=== PATIENT | female | born 1980 | race Caucasian/White ===

== ENCOUNTER 2019-03-05 16:06 | Outpatient (CLI) | payer MEDICAID ==
[~2019-03-05] VITALS: Ht 167.6 cm; Wt 72.7 kg
[2019-03-05 16:20] VITALS: Ht 167.6 cm; Wt 72.7 kg
[2019-03-05 16:22] VITALS: BP 112/74; PULSE 102; RESP 20
[2019-03-05] MEDS ORDERED: METF500T PO (16:28)
[2019-03-05] MEDS ORDERED: METH250T5 PO (16:29)
[2019-03-05] MEDS ORDERED: PREN1TAB13 PO (16:29)
[2019-03-05] MEDS ORDERED: FER325 PO (16:30)
[2019-03-05] MEDS ORDERED: CALC-143 PO (16:31)
--- NOTE | 2019-03-05 17:30 | PN ---
Triage Information Date/Time Reason for visit: HTN for NST BPP Weeks of Gestation 34+ /Para n/a Diabetes: gestational Diabetes management: oral agent Hypertention: essential, induced Objective Vital Signs Date Temp Pulse Resp B/P (MAP) Pulse Ox O2 O2 Flow FiO2 Time Delivery Rate 03/05/19 98.1 102 20 112/74 Room Air 16:22 (87) Heart Rate: 140's Results/Medications Result Diagram: 03/05/19 1635 03/05/19 1635 Results 24 hrs Laboratory Tests Test 03/05/19 16:35 White Blood Count 9.2 Red Blood Count 3.73 L Hemoglobin 7.6 L Hematocrit 25.5 L Mean Corpuscular Volume 68.4 L Mean Corpuscular Hemoglobin 20.4 L Mean Corpuscular Hemoglobin Concent 29.8 L Red Cell Distribution Width 17.5 H Platelet Count 319 Mean Platelet Volume 9.0 Immature Granulocytes % 0.500 H Neutrophils % 64.2 Lymphocytes % 26.4 Monocytes % 7.7 Eosinophils % 0.9 Basophils % 0.3 Nucleated Red Blood Cells % 0.0 Immature Granulocytes # 0.050 H Neutrophils # 5.9 Lymphocytes # 2.4 Monocytes # 0.7 Eosinophils # 0.1 Basophils # 0.0 Nucleated Red Blood Cells # 0.0 Prothrombin Time 12.0 Prothrombin Time Ratio 0.9 INR International Normalized Ratio 0.88 Activated Partial Thromboplast Time 25.3 Urine Color YELLOW Urine Clarity CLOUDY A Urine pH 6.0 Urine Specific [place] 1.018 Urine Ketones 1+ H Urine Nitrite NEGATIVE Urine Bilirubin NEGATIVE Urine Urobilinogen NEGATIVE Urine Leukocyte Esterase NEGATIVE Urine Microscopic RBC 1 Urine Microscopic WBC 21 H Urine Squamous Epithelial Cells MANY A Urine Bacteria FEW A Urine Hemoglobin NEGATIVE Urine Glucose NEGATIVE Urine Total Protein NEGATIVE Sodium Level 136 Potassium Level 4.1 Chloride Level 107 Carbon Dioxide Level 20 L Anion Gap 9 Blood Urea Nitrogen 15 Creatinine 0.53 Est Glomerular Filtrat Rate mL/min > 60 Glucose Level 92 Uric Acid 2.9 L Calcium Level 9.2 Total Bilirubin 0.3 Direct Bilirubin 0.00 Indirect Bilirubin 0.3 Aspartate Amino Transf (AST/SGOT) 20 Alanine Aminotransferase (ALT/SGPT) 17 Alkaline Phosphatase 105 Total Protein 7.2 Albumin 3.5 Globulin 3.70 H Albumin/Globulin Ratio 0.94 Disposition: Discharge Assessment/Plan BPP 08/01 CX closed Precautions discussed Questions answered Follow up with provider SVITLANA VELASQUEZ M.D. March 05, 2019 17:30
--- NOTE | 2019-03-05 19:22 | TRIAGE ---
OB Triage Datetime Report Generated by CPN: 03/05/2019 19:22 Datetime: 03/05/2019 17:18 Vaginal Exam Dilatation (cms): 0.0 Effacement (%): 40 Station: -3 Exam By: MAY Datetime: 03/05/2019 17:00 Labor Evaluation Frequency: X5 Monitor Mode: External Duration (sec)2399: 40-100 Quality: Mild Pattern: Normal: <= 5 Contractions in 10 Minutes Resting Tone [place]: Relaxed Heart Rate FHR Baseline Rate: 140 Monitor Mode: External US FHR Baseline Changes: No Baseline Change Variability: Moderate 6-25 bpm Accelerations: 15X15 Decelerations: None Category: Category I Pain Assessment Pain Scale: 0 Pain Presence: None/Denies Pain Type: N/A Pain Goal: 0 Datetime: 03/05/2019 16:12 EGA: 34.4 Datetime: 03/05/2019 16:06 Stage of : OB Triage Assessment Type: Triage Time of Arrival: 03/05/2019 15:54 Arrived By: Ambulatory Arrived From: Office Chief Complaint: NST/BPP/SHIRLEY FOR CHRONIC HTN AND DIABETES Movement: Present Contractions: Denies/Absent Rupture of Membranes: Denies Vaginal Bleeding: None Vaginal Discharge: Present Recent Sexual Intercouse: Denies Abdominal Trauma: Not Applicable Patient Complaints: None Time Provider Notified: 03/05/2019 17:17 Provider Notified: RON Initial Plan: NST/BPP/SHIRLEY/[facility] Maternal Assessment Level of Consciousness: Fully Conscious DTR's/Clonus: DTRs 2+; No Clonus Headache: Denies Blurred Vision: No Respiratory Effort: Unlabored; Regular Rhythm; Equal Expansion Breath Sounds, Left: Clear and Equal Breath Sounds, Right: Clear and Equal Nausea/Vomiting: Denies RUQ Epigastric Pain: Denies Lower Extremities Edema: None Degree: None Upper Extremities Edema: None Degree: None Facial Edema: None Temperature Route: Axillary Fall Risk Assessment History of Falling: (0) No Secondary Diagnosis: (0) No Ambulatory Aid: (0) Bedrest/Nurse Assist IV Therapy: (0) No Gait: (0) Normal/Bedrest/Immobile Mental Status: (0) Oriented to Own Ability Fall Score: 0 Fall Risk Score Definition: No Risk: No action required
== END 2019-03-05 17:30 | disposition home or self-care (01) ==
LOC: OBT 16:06 → L-D 16:08 → OBT 17:30
PROVIDERS: ATTEND Obstetrics & Gynecology
DX: O13.3 Gestational [pregnancy-induced] hypertension without significant proteinuria, third trimester (principal); O24.419 Gestational diabetes mellitus in pregnancy, unspecified control; O36.8330 Maternal care for abnormalities of the fetal heart rate or rhythm, third trimester, not applicable or unspecified; O09.513 Supervision of elderly primigravida, third trimester; Z3A.34 34 weeks gestation of pregnancy
CPT/HCPCS: 76815; 76818; 80053; 81001; 84560; 85025; 85610; 85730; Z7500; G0463

== ENCOUNTER 2019-03-07 09:50 | Inpatient (IN) | payer MEDICAID ==
[~2019-03-07] VITALS: Ht 170.2 cm; Wt 72.6 kg
[~2019-03-07 09:50] MED LIST: CALC-143 PO; FER325 PO; METF500T PO; METH250T5 PO; PREN1TAB13 PO
[2019-03-07 09:54] VITALS: Ht 170.2 cm; Wt 72.6 kg
[2019-03-07 09:55] VITALS: BP 107/68; PULSE 88; RESP 18
--- NOTE | 2019-03-07 14:08 | TRIAGE ---
OB Triage Datetime Report Generated by CPN: 03/07/2019 14:08 Datetime: 03/07/2019 13:59 Labor Evaluation Frequency: x7 Monitor Mode: External Duration (sec)2399: 40-90 Quality: Mild Resting Tone [place]: Relaxed Heart Rate FHR Baseline Rate: 140 Monitor Mode: External US FHR Baseline Changes: No Baseline Change Variability: Moderate 6-25 bpm Accelerations: 15X15 Decelerations: None Category: Category I Datetime: 03/07/2019 13:03 Stage of : Antepartum Datetime: 03/07/2019 13:00 Labor Evaluation Frequency: x2 Monitor Mode: External Duration (sec)2399: 70-90 Quality: Mild Resting Tone [place]: Relaxed Contraction Comments: irritability noted Heart Rate FHR Baseline Rate: 145 Monitor Mode: External US FHR Baseline Changes: No Baseline Change Variability: Moderate 6-25 bpm Accelerations: 15X15 Decelerations: Variable Category: Category II Vaginal Exam Dilatation (cms): 0.0 Effacement (%): 0 Exam By: Dr Ardalan Datetime: 03/07/2019 12:01 Labor Evaluation Frequency: x2 Monitor Mode: External Duration (sec)2399: 60-110 Quality: Mild Resting Tone [place]: Relaxed Contraction Comments: uterine irritability noted Heart Rate FHR Baseline Rate: 145 Monitor Mode: External US FHR Baseline Changes: No Baseline Change Variability: Moderate 6-25 bpm Accelerations: 15X15 Decelerations: None Category: Category I Datetime: 03/07/2019 11:29 Bedside Blood Glucose: 128 Datetime: 03/07/2019 10:59 Labor Evaluation Frequency: x2 Monitor Mode: External Duration (sec)2399: 70-100 Quality: Mild Resting Tone [place]: Relaxed Heart Rate FHR Baseline Rate: 145 Monitor Mode: External US FHR Baseline Changes: No Baseline Change Variability: Moderate 6-25 bpm Accelerations: 15X15 Decelerations: Variable Category: Category II Datetime: 03/07/2019 10:10 Stage of : OB Triage Maternal Assessment Level of Consciousness: Fully Conscious DTR's/Clonus: DTRs 2+; No Clonus Headache: Denies Blurred Vision: No Respiratory Effort: Unlabored; Regular Rhythm; Equal Expansion Breath Sounds, Left: Clear and Equal Breath Sounds, Right: Clear and Equal Nausea/Vomiting: Denies RUQ Epigastric Pain: Denies Lower Extremities Edema: None Degree: None Upper Extremities Edema: None Degree: None Facial Edema: None Temperature Route: Oral Fall Risk Assessment History of Falling: (0) No Secondary Diagnosis: (0) No Ambulatory Aid: (0) Bedrest/Nurse Assist IV Therapy: (0) No Gait: (0) Normal/Bedrest/Immobile Mental Status: (0) Oriented to Own Ability Fall Score: 0 Fall Risk Score Definition: No Risk: No action required Labor Evaluation Frequency: none Monitor Mode: External Contraction Comments: uterine irritability noted Heart Rate FHR Baseline Rate: 150 Monitor Mode: External US FHR Baseline Changes: No Baseline Change Variability: Moderate 6-25 bpm Accelerations: 15X15 Decelerations: None Category: Category I Pain Assessment Pain Scale: 0 Pain Presence: None/Denies Pain Type: N/A Datetime: 03/05/2019 17:20 Time of Arrival: 03/07/2019 09:36 EGA: 34.6 Arrived By: Ambulatory Arrived From: Home Chief Complaint: NST Movement: Present Contractions: Denies/Absent Rupture of Membranes: Denies Vaginal Bleeding: None Vaginal Discharge: Denies Recent Sexual Intercouse: Denies Abdominal Trauma: Not Applicable Patient Complaints: None Time Provider Notified: 03/07/2019 10:28 Provider Notified: Dr Benites Initial Plan: EFM, NST Datetime: 03/05/2019 16:12 EGA: 34.4 Datetime: 03/05/2019 16:06 Fall Score: 0 Fall Risk Score Definition: No Risk: No action required
[2019-03-07] MEDS ORDERED: GLUCOSE GEL 15 GRAM TUBE BUCCAL PRN (14:30)
[2019-03-07] MEDS ORDERED: GLUCOSE GEL 15 GRAM TUBE PO PRN ×2 (14:30)
[2019-03-07] MEDS ORDERED: DEXTROSE 50% 50 ML SYRINGE IV PRN ×2 (14:30)
[2019-03-07] MEDS ORDERED: GLUCAGON 1 MG INJ IM PRN (14:30)
[2019-03-07] MEDS: LACTATED RINGER'S 1,000 ML IV SCH (17:28)
--- NOTE | 2019-03-07 18:06 | PN ---
Triage Information Date/Time March 07, 2019 at 13:00 Reason for visit: testing Weeks of Gestation 34 weeks and 6 days /Para 6 para 2 Diabetes: none Hypertention: none Additional information 38-year-old G6, P2 with IUP at 34 weeks and 6 days with history of chronic hypertension and pre-gestational diabetes currently on medication here today for testing including NST/BPP. Patient had a history of x2. She had some contractions are currently resolved. Denies any leaking of fluid vaginal bleeding or decreased movement. Patient currently on Aldomet 20 mg every 8 hours as well as Metformin thousand milligrams every 8 hours and iron with vitamin. Hemoglobin A1c and her records reviewed 6.1. Patient denies any complaints. Objective Vital Signs Date Temp Pulse Resp B/P (MAP) Pulse Ox O2 O2 Flow FiO2 Time Delivery Rate 03/07/19 98.1 88 18 107/68 Room Air 09:55 (81) Heart Rate: 130's Heart Rate Comments NST: Category 1 Contractions: None Exam Appearance: Alert and oriented x4 does not appear to be in any acute distress Abdomen: Soft, gravid, fundal height consider gestational age NST: Category 1 BPP: 8/8 SHIRLEY: 14 x 6 Results/Medications Results 24 hrs Laboratory Tests Test 03/07/19 11:25 03/07/19 11:29 03/07/19 11:33 Urine Color LAURO Urine Clarity SLIGHTLY CLOUDY A Urine pH 6.0 Urine Specific [place] 1.023 Urine Ketones 1+ H Urine Nitrite NEGATIVE Urine Bilirubin NEGATIVE Urine Urobilinogen 2+ H Urine Leukocyte Esterase NEGATIVE Urine Microscopic RBC 15 H Urine Microscopic WBC 16 H Urine Squamous MODERATE Epithelial Cells Urine Bacteria FEW A Urine Mucus MODERATE Urine Hemoglobin NEGATIVE Urine Glucose NEGATIVE Urine Total Protein NEGATIVE Bedside Glucose 128 Hemoglobin A1c 6.1 H Medications Current Medications Lactated Ringer's 1,000 ml @ 125 mls/hr Q8H IV Last administered on 03/07/19at 17:28; Admin Dose 125 MLS/HR; Start 03/07/19 at 14:08 Prenat Multivit/ [place] [employer]/Iron/Folic Ac () 1 tab DAILY PO ; Start 03/08/19 at 09:00 Ferrous Sulfate (Ferrous Sulfate (Ec)) 325 mg BID PO ; Start 03/07/19 at 21:00 Metformin HCl (Glucophage) 1,000 mg TID PO ; Start 03/07/19 at 21:00 Methyldopa (Aldomet) 250 mg Q8 PO ; Start 03/07/19 at 22:00 Miscellaneous Information 1 ea NOTE XX ; Start 03/07/19 at 14:30 Glucose (Glutose) 15 gm Q15M PRN PO DECREASED GLUCOSE; Start 03/07/19 at 14:30 Glucose (Glutose) 22.5 gm Q15M PRN PO DECREASED GLUCOSE; Start 03/07/19 at 14:30 Dextrose (D50w Syringe) 25 ml Q15M PRN IV DECREASED GLUCOSE; Start 03/07/19 at 14:30 Dextrose (D50w Syringe) 50 ml Q15M PRN IV DECREASED GLUCOSE; Start 03/07/19 at 14:30 Glucagon (Glucagen) 1 mg Q15M PRN IM DECREASED GLUCOSE; Start 03/07/19 at 14:30 Glucose (Glutose) 15 gm Q15M PRN BUCCAL DECREASED GLUCOSE; Start 03/07/19 at 14:30 Imaging Results PROCEDURE: US OB biophysical profile. CLINICAL INDICATION: decreased movements, hypertension TECHNIQUE: Multiple sonographic images of the pelvis were obtained. The images were reviewed on a PACS workstation. COMPARISON: US PELVIS 03/05/2019 FINDINGS: There is a single live intrauterine gestation. Cardiac activity is present with 146 beats per minute. There is a vertex presentation. The placenta is anterior. There is no evidence of placental abruption. SHIRLEY = 14.6 cm. Biophysical profile: movement 2/2 tone 2/2. breathing 2/2 SHIRLEY 2/2 Total 88 RPTAT: AA . IMPRESSION: Normal biophysical profile. Disposition: Discharge Assessment/Plan IUP at 34 weeks and 6 days Chronic hypertension, well controlled with medication, asymptomatic no evidence of preeclampsia Diabetes, medication testing reassuring. No evidence of labor Recommended the patient to have a 24-hour urine protein collection Strict preeclampsia precaution was given as well as labor precautions kick counts and follow-up with NST tomorrow when the patient bring 24-hour urine for the baseline protein collection Patient verbalized understanding signs and symptoms of preeclampsia discussed as well as labor. All questions were answered to patient's best sa tisfaction. MARY GAMINO MD March 07, 2019 18:06
[2019-03-07] MEDS: FERROUS SULFATE (EC) 325 MG TAB PO SCH (20:55)
[2019-03-07] MEDS: metFORMIN 500 MG TAB PO SCH (20:59)
[2019-03-07] MEDS: METHYLDOPA 250 MG TAB PO SCH (22:28)
[2019-03-08] MEDS: LACTATED RINGER'S 1,000 ML IV SCH ×2 (00:10→06:08)
[2019-03-08] MEDS: METHYLDOPA 250 MG TAB PO SCH ×4 (06:00→22:15)
[2019-03-08] MEDS: PRENATAL VITAMIN PO SCH (08:48)
[2019-03-08] MEDS: FERROUS SULFATE (EC) 325 MG TAB PO SCH ×2 (08:48→20:47)
[2019-03-08] MEDS: metFORMIN 500 MG TAB PO SCH ×3 (08:49→20:48)
--- NOTE | 2019-03-08 11:45 | QN ---
Documentation Comment 38-year-old G6, P2 with IUP at 35 weeks of gestation, estimated date of delivery April 12, 2019 with history of chronic hypertension and pre-gestational diabetes currently on medication was seen yesterday for testing including NST/BPP. heart rate tracing yesterday was noted to have one deceleration therefore patient was admitted for continuous observation Patient reports positive movement, denies any vaginal bleeding or leaking fluid, reports occasional pelvic pressure heart rate tracing currently category 1 Vital signs stable VS - Last 72 Hours, by Label Date Temp Pulse Resp B/P (MAP) Pulse Ox O2 O2 Flow FiO2 Time Delivery Rate 03/07/19 98.1 88 18 107/68 Room Air 09:55 (81) Urine Results - 72 Hrs Test 03/07/19 11:25 Urine Color LAURO (YELLOW) Urine Clarity SLIGHTLY CLOUDY (CLEAR) Urine pH 6.0 (5.0-9.0) Urine Specific [place] 1.023 (1.003-1.030) Urine Ketones 1+ mg/dL (NEGATIVE) H Urine Nitrite NEGATIVE mg/dL (NEGATIVE) Urine Bilirubin NEGATIVE mg/dL (NEGATIVE) Urine Urobilinogen 2+ mg/dL (NEGATIVE) H Urine Leukocyte Esterase NEGATIVE Orestes/ul Urine Microscopic RBC 15 /HPF (0-5) H Urine Microscopic WBC 16 /HPF (0-5) H Urine Squamous Epithelial Cells MODERATE /HPF (FEW) Urine Bacteria FEW /HPF (NONE SEEN) A Urine Mucus MODERATE /HPF (NONE SEEN) Urine Hemoglobin NEGATIVE mg/dL (NEGATIVE) Urine Glucose NEGATIVE mg/dL (NEGATIVE) Urine Total Protein NEGATIVE mg/dl (NEGATIVE) Chemistry Test 03/07/19 11:29 03/07/19 11:33 03/07/19 17:32 03/07/19 20:27 Bedside 128 122 Glucose mg/dL (70-220) mg/dL (70-220) Hemoglobin A1c 6.1 % (0-5.9) H Sodium Level 135 mmol/L (135-14 4) Potassium 3.8 Level mmol/L (3.5-5. 1) Chloride Level 106 mmol/L (97-110 ) Carbon Dioxide 22 Level mmol/L (21-31) Anion Gap 7 (5-13) Blood Urea 10 Nitrogen mg/dl (7-20) Creatinine 0.35 mg/dl (0.44-1. 00) L Est Glomerular > 60 Filtrat mL/min (>60) Rate mL/min Glucose Level 94 mg/dl (70-220) Calcium Level 8.7 mg/dl (8.4-10. 2) Total 0.3 Bilirubin mg/dl (0.2-1.3 ) Direct 0.00 Bilirubin mg/dl (0.00-0. 20) Indirect 0.3 Bilirubin mg/dl (0-1.1) Aspartate Amino 19 Transf (AST/SGO IU/L (15-46) T) Alanine 16 Aminotransferas IU/L (13-69) e (ALT/SGPT) Alkaline 100 Phosphatase IU/L (42-121) Total Protein 6.8 g/dl (6.1-8.1) Albumin 3.3 g/dl (3.3-4.9) Globulin 3.50 g/dl (1.3-3.2) H Albumin/Globuli 0.94 n Ratio Test 03/08/19 08:08 03/08/19 11:22 Bedside 94 104 Glucose mg/dL (70-220) mg/dL (70-220) PROCEDURE: US OB biophysical profile. CLINICAL INDICATION: decreased movements, hypertension TECHNIQUE: Multiple sonographic images of the pelvis were obtained. The images were reviewed on a PACS workstation. COMPARISON: US PELVIS 03/05/2019 FINDINGS: There is a single live intrauterine gestation. Cardiac activity is present with 146 beats per minute. There is a vertex presentation. The placenta is anterior. There is no evidence of placental abruption. SHIRLEY = 14.6 cm. Biophysical profile: movement 2/2 tone 2/2. breathing 2/2 SHIRLEY 2/2 Total 05/30 RPTAT: AA . IMPRESSION: Normal biophysical profile. . .William Milan MD, Date Time Electronically viewed and signed by .William Milan MD, on 03/07/2019 12:04 .S/ CC: MARY GAMINO MD [id number] Abdomen gravid Extremities nontender Assessment and plan; Perinatology consultation pending 24-hour urine protein collection to be done CBC today Cervical length was ordered to be done today Continue with present management JOLENE BETANCUR MD March 08, 2019 11:45
--- NOTE | 2019-03-08 16:24 | PN ---
DATE: 03/08/2019 The patient was apparently admitted secondary to "late deceleration" that she had the day before [employer]. I reviewed the strip. The strip looks fine. The patient can be discharged home. Dictated By: LORA JORDAN MD ST/NTS Conf#: [id number] DID#: [id number] CC: RADHA NGUYEN MD;*EndCC*
--- NOTE | 2019-03-08 16:26 | PN ---
DATE: 03/08/2019 ADDENDUM: The patient upon discharge should have testing twice weekly until delivery. Dictated By: LORA JORDAN MD ST/ENRIQUE Conf#: [id number] DID#: [id number] CC: RADHA NGUYEN MD;*EndCC*
[2019-03-08] MEDS ORDERED: ACETAMINOPHEN 325 MG TAB PO PRN (17:00)
[2019-03-09] MEDS: METHYLDOPA 250 MG TAB PO SCH (05:57)
[2019-03-09] MEDS: FERROUS SULFATE (EC) 325 MG TAB PO SCH (08:46)
[2019-03-09] MEDS: PRENATAL VITAMIN PO SCH (08:46)
[2019-03-09] MEDS: metFORMIN 500 MG TAB PO SCH (08:47)
--- NOTE | 2019-03-09 11:38 | QN ---
Documentation Comment 38-year-old G6, P2 with IUP at 35 weeks and 1 day of gestation, estimated date of delivery April 12, 2019 with history of chronic hypertension and pre- gestational diabetes currently on medication was seen for testing including NST/BPP. heart rate tracing yesterday was noted to have one deceleration therefore patient was admitted for continuous observation Patient reports positive movement, denies any vaginal bleeding or leaking fluid, reports occasional pelvic pressure heart rate tracing currently category 1 Past obstetrical history significant for x2 Vital signs stable VS - Last 72 Hours, by Label Date Temp Pulse Resp B/P (MAP) Pulse Ox O2 O2 Flow FiO2 Time Delivery Rate 03/07/19 98.1 88 18 107/68 Room Air 09:55 (81) Urine Results - 72 Hrs Test 03/07/19 11:25 03/08/19 11:54 Urine Color LAURO (YELLOW) Urine Clarity SLIGHTLY CLOUDY (CLEAR) Urine pH 6.0 (5.0-9.0) Urine Specific [place] 1.023 (1.003-1.030) Urine Ketones 1+ mg/dL (NEGATIVE) H Urine Nitrite NEGATIVE mg/dL (NEGATIVE) Urine Bilirubin NEGATIVE mg/dL (NEGATIVE) Urine Urobilinogen 2+ mg/dL (NEGATIVE) H Urine Leukocyte Esterase NEGATIVE Orestes/ul Urine Microscopic RBC 15 /HPF (0-5) H Urine Microscopic WBC 16 /HPF (0-5) H Urine Squamous MODERATE /HPF (FEW) Epithelial Cells Urine Bacteria FEW /HPF (NONE SEEN) A Urine Mucus MODERATE /HPF (NONE SEEN) Urine Hemoglobin NEGATIVE mg/dL (NEGATIVE) Urine Glucose NEGATIVE mg/dL (NEGATIVE) Urine Total Protein NEGATIVE mg/dl (NEGATIVE) Urine Random Creatinine 28.93 mg/dl (20-320) Urine Collection Duration 24 hrs Urine Total Volume 24 3100 ml/24hrs Hours Urine Creatinine Timed 24 hrs Creatinine Clearance 177.9 mls/min (84.0-162.0) H Urine Total Volume 3100 mls (Protein) Urine Total Protein 24 465.0 Hour mg/24hrs (42.0-225.0) H Hematology - 72 Hrs Test 03/08/19 13:16 Hematocrit 25.2 % (37.0-47.0) L Hemoglobin 7.4 g/dl (12.0-16.0) L Mean Corpuscular Hemoglobin 20.2 pg (29.0-33.0) L Mean Corpuscular Hemoglobin Concent 29.4 g/dl (32.0-37.0) L Mean Corpuscular Volume 68.9 fl (82.0-101.0) L Mean Platelet Volume 9.0 fl (7.4-10.4) Platelet Count 322 10^3/UL (140-415) Red Blood Count 3.66 10^6/ul (4.20-5.40) L Red Cell Distribution Width 17.5 % (11.5-14.5) H White Blood Count 7.3 10^3/ul (4.8-10.8) # Chemistry Test 03/07/19 11:29 03/07/19 11:33 03/07/19 17:32 03/07/19 20:27 Bedside 128 122 Glucose mg/dL (70-220) mg/dL (70-220) Hemoglobin A1c 6.1 % (0-5.9) H Sodium Level 135 mmol/L (135-14 4) Potassium 3.8 Level mmol/L (3.5-5. 1) Chloride Level 106 mmol/L (97-110 ) Carbon Dioxide 22 Level mmol/L (21-31) Anion Gap 7 (5-13) Blood Urea 10 Nitrogen mg/dl (7-20) Creatinine 0.35 mg/dl (0.44-1. 00) L Est Glomerular > 60 Filtrat mL/min (>60) Rate mL/min Glucose Level 94 mg/dl (70-220) Calcium Level 8.7 mg/dl (8.4-10. 2) Total 0.3 Bilirubin mg/dl (0.2-1.3 ) Direct 0.00 Bilirubin mg/dl (0.00-0. 20) Indirect 0.3 Bilirubin mg/dl (0-1.1) Aspartate Amino 19 Transf (AST/SGO IU/L (15-46) T) Alanine 16 Aminotransferas IU/L (13-69) e (ALT/SGPT) Alkaline 100 Phosphatase IU/L (42-121) Total Protein 6.8 g/dl (6.1-8.1) Albumin 3.3 g/dl (3.3-4.9) Globulin 3.50 g/dl (1.3-3.2) H Albumin/Globuli 0.94 n Ratio Test 03/08/19 08:08 03/08/19 11:22 03/08/19 14:59 03/08/19 20:31 Bedside 94 104 95 104 Glucose mg/dL (70-220) mg/dL (70-220) mg/dL (70-220) mg/dL (70-220) Test 03/09/19 08:06 Bedside 89 Glucose mg/dL (70-220) PROCEDURE: Obstetric ultrasound CLINICAL INDICATION: Pain , gestational diabetes TECHNIQUE: Multiple transverse and longitudinal grayscale images of the pelvis were obtained transabdominally and transvaginally.. COMPARISON: US PELVIS 03/07/2019 FINDINGS: The cervix is closed with a length of 3.2 cm. There is a single live intrauterine gestation. Cardiac activity is present with 148 beats per minute. There is a vertex presentation. The placenta is anterior. There is no evidence for an abruption or placenta previa. RPTAT: AA IMPRESSION: Cervix length measures 3.2 cm. .William Milan MD, Date Time Electronically viewed and signed by .William Milan MD, on 03/08/2019 12:40 .S/ CC: JOLENE BETANCUR MD [id number] PROCEDURE: US OB biophysical profile. CLINICAL INDICATION: decreased movements, hypertension TECHNIQUE: Multiple sonographic images of the pelvis were obtained. The images were reviewed on a PACS workstation. COMPARISON: US PELVIS 03/05/2019 FINDINGS: There is a single live intrauterine gestation. Cardiac activity is present with 146 beats per minute. There is a vertex presentation. The placenta is anterior. There is no evidence of placental abruption. SHIRLEY = 14.6 cm. Biophysical profile: movement 2/2 tone 2/2. breathing 2/2 SHIRLEY 2/2 Total 05/30 RPTAT: AA . IMPRESSION: Normal biophysical profile. . .William Milan MD, Date Time Electronically viewed and signed by .William Milan MD, on 03/07/2019 12:04 .S/ CC: MAYR GAMINO MD [id number] Assessment and plan heart rate tracing remained category 1 24-hour urine protein collection [address] was discussed with Dr[address] Mock/perinatologist and okay to be discharged home with instruction for biweekly testing until delivery Patient was instructed to return for NST and BPP on Monday, March 11, 2019 JOLENE BETANCUR MD March 09, 2019 11:38
--- NOTE | 2019-03-09 11:46 | DS ---
Date/Time of Note Date/Time of Note DATE: 03/09/19 TIME: 11:46 Obstetrical Discharge Record Final Diagnosis Final Diagnosis: not delivered Other Final Diagnosis 38-year-old G6, P2 with IUP at 35 weeks and 1 day of gestation, estimated date of delivery April 12, 2019 with history of chronic hypertension and pre- gestational diabetes currently on medication was seen for testing including NST/BPP. heart rate tracing was noted to have one deceleration therefore patient was admitted for continuous observation Patient reports positive movement, denies any vaginal bleeding or leaking fluid, reports occasional pelvic pressure Cervix length measures 3.2 cm. Past obstetrical history significant for x2 heart rate tracing remained category 1 24-hour urine protein collection 465 Patient was discussed with Dr. Mock/perinatologist and mojgan to be discharged home with instruction for biweekly testing until delivery Patient was instructed to return for NST and BPP on Monday, March 11, 2019 Patient instructed to continue with her regular medications for hypertension and diabetes Complications Gestational Diabetes (Pre-gestational diabetes), Other (Chronic hypertension) Condition on Discharge Physical Assessment Voiding: Yes Bowel Movement: Yes Breast: Soft, non-tender Fundus: Other (Gravid) Calf Tenderness: No Patient Condition: Good Copies To: CC: RADHA NGUYEN BAHAREH MD March 09, 2019 11:46
== END 2019-03-09 12:48 | disposition home or self-care (01) | DRG 833 ==
LOC: OBT 09:50 → L-D 09:52 → OBT 13:00 → PP1 14:34
PROVIDERS: ADMIT Obstetrics & Gynecology; ATTEND Obstetrics & Gynecology
DX: O10.913 Unspecified pre-existing hypertension complicating pregnancy, third trimester (principal); O24.419 Gestational diabetes mellitus in pregnancy, unspecified control; Z3A.35 35 weeks gestation of pregnancy
CPT/HCPCS: 76817; 76818; 80053; 81001; 81003; 82575; 82962; 83036; 84156; 85025; 87086; G0463; J7120

== ENCOUNTER 2019-03-11 17:46 | Outpatient (CLI) | payer MEDICAID ==
[~2019-03-11] VITALS: Ht 167.6 cm; Wt 73.1 kg
[2019-03-11 18:10] VITALS: Ht 167.6 cm; Wt 73.1 kg
[2019-03-11] MEDS ORDERED: ACETAMINOPHEN 325 MG TAB PO ONE (19:00)
--- NOTE | 2019-03-12 12:08 | PN ---
Triage Information Date/Time Reason for visit: here for NST and BPP/ testing Weeks of Gestation patient is a 38-year-old 6 para 2 at 36 weeks of gestation with es timated date of delivery April 08, 2019 patient with pre-gestationa diabetes on Metformin and chronic HTN on Aldomet here for testing she reports positive movement, denies vaginal bleeding or leaking fluid, denies uterine contractions 24 hour urine protein collection 465 on March 08, 2019 Hx of C/section X 2 /Para Diabetes: pre-gestational Hypertention: essential Objective Heart Rate: 140's Heart Rate Comments heart rate tracing category 1 Contractions: None Results/Medications Imaging Results [place] [id number] Radiology Main Line: [phone] DIAGNOSTIC IMAGING REPORT Patient: AMRIT LOPEZ : 1980 Age: 38 Sex: F MR #: [id number] DOS: 03/11/19 1804 Ordering MD: RADHA NGUYEN MD Location: [facility] Room/Bed: PROCEDURE: US OB. CLINICAL INDICATION: Hypertension TECHNIQUE: Multiple sonographic images of the pelvis were obtained. The images were reviewed on a PACS workstation. COMPARISON: 03/07/2019 FINDINGS: There is a single live intrauterine . cardiac activity is identified at a rate of 148 beats per minute. presentation is cephalic. Placenta is anterior grade II. Biophysical profile score is as follows: Breathing 2 Movements 2 Tone 2 Fluid volume 2 Amniotic fluid index = 12.5 cm Total biophysical profile score = 8/8 IMPRESSION: Biophysical profile score = 8/8 RPTAT: HH .Rick Morris MD, Date Time Electronically viewed and signed by .Rick Morris MD, on 03/11/2019 18:56 .W/ CC: RADHA NGUYEN [phone] Disposition: Discharge Assessment/Plan kick count instructions were given Labor precautions were given patient instructed to return in 48 hours for repeat NST and BPP Patient instructed to follow up with her own [employer] in 1 to 2 days JOLENE BETANCUR MD March 12, 2019 12:08
== END 2019-03-11 19:43 | disposition home or self-care (01) ==
LOC: OBT 17:46 → L-D 17:49 → OBT 19:43
PROVIDERS: ATTEND Obstetrics & Gynecology
DX: O36.8330 Maternal care for abnormalities of the fetal heart rate or rhythm, third trimester, not applicable or unspecified (principal); O24.415 Gestational diabetes mellitus in pregnancy, controlled by oral hypoglycemic drugs; O34.219 Maternal care for unspecified type scar from previous cesarean delivery; O09.523 Supervision of elderly multigravida, third trimester; Z3A.36 36 weeks gestation of pregnancy
CPT/HCPCS: 76818; Z7500; Z7610; G0463

== ENCOUNTER 2019-03-13 08:38 | Outpatient (CLI) | payer MEDICAID ==
[~2019-03-13] VITALS: Ht 167.6 cm; Wt 72.8 kg
[2019-03-13 08:50] VITALS: BP 106/65; Ht 167.6 cm; Wt 72.8 kg
--- NOTE | 2019-03-31 17:15 | PN ---
Triage Information Date/Time Reason for visit: Antepartum testing Weeks of Gestation 33 weeks and 2 days /Para -0-3-2 Diabetes: none, pre-gestational Hypertention: essential Objective Heart Rate: 130's Contractions: None Disposition: Discharge Assessment/Plan 38-year-old -0-3-2 with single intrauterine at 33 weeks and 2 days presented for antepartum testing. She states good movement. She denies nausea, vomiting, shortness of breath, chest pain, headache, visual changes, vaginal bleeding or LOF. -FHR: No sign of metabolic acidosis- Category I -Contractions: None -Ultrasound performed: Normal SHIRLEY, BPP 8 out of 8 -Symptoms and sign of labor, preeclampsia, kick count discussed with patient, she voiced understanding. All of her questions answered. -Patient was discharged home in stable condition with the appropriate discharge instructions provided. I would like patient to have close follow-up with her primary physician or outpatient clinic in 1-2 days or return to triage for worsening symptoms or any other urgent concerns. RADHA NGUYEN Mar 31, 2019 17:15
== END 2019-03-13 11:00 | disposition home or self-care (01) ==
LOC: OBT 08:38 → L-D 08:39 → OBT 11:00
PROVIDERS: ATTEND Obstetrics & Gynecology
DX: O24.419 Gestational diabetes mellitus in pregnancy, unspecified control (principal); O16.3 Unspecified maternal hypertension, third trimester; Z3A.33 33 weeks gestation of pregnancy
CPT/HCPCS: 76818; Z7500; G0463

== ENCOUNTER 2019-03-14 16:49 | Outpatient (CLI) | payer MEDICAID ==
[~2019-03-14] VITALS: Ht 175.3 cm; Wt 72.7 kg
[2019-03-14 19:56] VITALS: BP 102/67; PULSE 93; RESP 18
[2019-03-14 20:42] VITALS: Ht 175.3 cm; Wt 72.7 kg
[2019-03-14] MEDS ORDERED: ACETAMINOPHEN 500 MG TAB PO STA (20:48)
[2019-03-14] MEDS ORDERED: CYANOCOBALAMIN 1000 MCG INJ IM ONE (21:00)
[2019-03-14] MEDS ORDERED: SOD FERRIC GLUC COMPLX 125 MG in SOD CHLORIDE 0.9% 100 ML IVPB ONE (21:00)
--- NOTE | 2019-03-14 23:27 | TRIAGE ---
OB Triage Datetime Report Generated by CPN: 03/14/2019 23:26 Datetime: 03/14/2019 21:07 Labor Evaluation Frequency: x2 Monitor Mode: External Duration (sec)2399: 60-120 Quality: Mild Pattern: Normal: <= 5 Contractions in 10 Minutes Resting Tone Nice: Relaxed Heart Rate FHR Baseline Rate: 145 Monitor Mode: External US Variability: Moderate 6-25 bpm Accelerations: 15X15 Decelerations: None Category: Category I Datetime: 03/14/2019 21:06 Pain Presence: Constant Pain Type: Ache Pain Location: Head Pain Relief Measures: Pain Medication Given Datetime: 03/14/2019 20:30 Labor Evaluation Frequency: x2 Monitor Mode: External Duration (sec)2399: 120 Quality: Mild Pattern: Normal: <= 5 Contractions in 10 Minutes Resting Tone Nice: Relaxed Heart Rate FHR Baseline Rate: 145 Monitor Mode: External US Variability: Moderate 6-25 bpm Accelerations: 15X15 Decelerations: None Category: Category I Datetime: 03/14/2019 19:56 Stage of : OB Triage Assessment Type: Triage Maternal Assessment Level of Consciousness: Fully Conscious DTR's/Clonus: DTRs 2+; No Clonus Headache: Denies Blurred Vision: No Respiratory Effort: Unlabored; Regular Rhythm; Equal Expansion Breath Sounds, Left: Clear and Equal Breath Sounds, Right: Clear and Equal Nausea/Vomiting: Denies RUQ Epigastric Pain: Denies Lower Extremities Edema: None Degree: None Upper Extremities Edema: None Facial Edema: None Temperature Route: Oral Fall Risk Assessment History of Falling: (0) No Secondary Diagnosis: (0) No Ambulatory Aid: (0) Bedrest/Nurse Assist IV Therapy: (0) No Gait: (0) Normal/Bedrest/Immobile Mental Status: (0) Oriented to Own Ability Fall Score: 0 Fall Risk Score Definition: No Risk: No action required Pain Assessment Pain Scale: 6 Pain Presence: Constant Pain Type: Ache Pain Location: Head Datetime: 03/14/2019 19:50 Time of Arrival: 03/14/2019 16:47 EGA: 36.3 Arrived By: Ambulatory Arrived From: Home Chief Complaint: Clinic called pt to come to hospital for iron infusion Movement: Present Contractions: Denies/Absent Rupture of Membranes: Denies Vaginal Bleeding: None Vaginal Discharge: Denies Recent Sexual Intercouse: Denies Abdominal Trauma: Not Applicable Patient Complaints: None Additional Patient Complaints: None Time Provider Notified: 03/14/2019 20:32 Provider Notified: Dr. Nguyen Initial Plan: CEFM Datetime: 03/13/2019 10:04 Stage of : OB Triage Labor Evaluation Frequency: X1 Monitor Mode: External Duration (sec)2399: 80 Pattern: Normal: <= 5 Contractions in 10 Minutes Resting Tone Nice: Relaxed Heart Rate FHR Baseline Rate: 145 Monitor Mode: External US Variability: Moderate 6-25 bpm Accelerations: 15X15 Decelerations: None Category: Category I Pain Presence: None/Denies Pain Type: N/A Datetime: 03/13/2019 08:48 Stage of : OB Triage Assessment Type: Triage Maternal Assessment Level of Consciousness: Fully Conscious DTR's/Clonus: DTRs 2+; No Clonus Headache: Denies Blurred Vision: No Respiratory Effort: Unlabored; Regular Rhythm; Equal Expansion Breath Sounds, Left: Clear and Equal Breath Sounds, Right: Clear and Equal Nausea/Vomiting: Denies RUQ Epigastric Pain: Denies Lower Extremities Edema: None Degree: None Upper Extremities Edema: None Facial Edema: None Temperature Route: Oral Fall Risk Assessment History of Falling: (0) No Secondary Diagnosis: (0) No Ambulatory Aid: (0) Bedrest/Nurse Assist IV Therapy: (0) No Gait: (0) Normal/Bedrest/Immobile Mental Status: (0) Oriented to Own Ability Fall Score: 0 Fall Risk Score Definition: No Risk: No action required Monitor Mode: External Monitor Mode: External US (Annotations: INITIAL PLACEMENT ) Pain Assessment Pain Scale: 0 Pain Presence: None/Denies Pain Type: N/A Datetime: 03/11/2019 19:00 Stage of : OB Triage Labor Evaluation Frequency: NONE Monitor Mode: External Heart Rate FHR Baseline Rate: 145 Monitor Mode: External US Variability: Moderate 6-25 bpm Accelerations: 15X15 Decelerations: None Category: Category I Pain Assessment Pain Scale: 7 Pain Presence: Intermittent Pain Type: Ache Pain Location: Head Pain Goal: 3 Datetime: 03/11/2019 18:33 Stage of : OB Triage Labor Evaluation Frequency: 1 Monitor Mode: External Duration (sec)2399: 90 Quality: Mild Pattern: Normal: <= 5 Contractions in 10 Minutes Heart Rate FHR Baseline Rate: 145 Monitor Mode: External US Variability: Moderate 6-25 bpm Accelerations: 15X15 Decelerations: None Category: Category I Pain Assessment Pain Scale: 7 Pain Presence: Intermittent Pain Type: Ache Pain Location: Head Pain Goal: 3 Datetime: 03/11/2019 18:01 Time of Arrival: 03/13/2019 08:32 EGA: 36.2 Arrived By: Ambulatory Arrived From: Home Chief Complaint: NST, BPP FOR GDM CHT Movement: Present Contractions: Denies/Absent Rupture of Membranes: Denies Vaginal Bleeding: None Vaginal Discharge: Denies Recent Sexual Intercouse: Denies Abdominal Trauma: Not Applicable Patient Complaints: None Time Provider Notified: 03/13/2019 10:30 Provider Notified: DR. NGUYEN Initial Plan: NST. BPP Datetime: 03/11/2019 17:50 Assessment Type: Triage Maternal Assessment Level of Consciousness: Fully Conscious DTR's/Clonus: DTRs 2+; No Clonus Headache: Denies Blurred Vision: No Respiratory Effort: Unlabored; Regular Rhythm; Equal Expansion Breath Sounds, Left: Clear and Equal Breath Sounds, Right: Clear and Equal Nausea/Vomiting: Denies RUQ Epigastric Pain: Denies Lower Extremities Edema: None Degree: None Upper Extremities Edema: None Degree: None Facial Edema: None Fall Risk Assessment History of Falling: (0) No Secondary Diagnosis: (0) No Ambulatory Aid: (0) Bedrest/Nurse Assist IV Therapy: (0) No Gait: (0) Normal/Bedrest/Immobile Mental Status: (0) Oriented to Own Ability Fall Score: 0 Fall Risk Score Definition: No Risk: No action required Datetime: 03/11/2019 17:35 Time of Arrival: 03/11/2019 17:35 EGA: 35.3 Arrived By: Ambulatory Arrived From: Home Chief Complaint: PT CAME IN FROM HOME FOR NST AND BPP F/U FOR GDM AND HIGH BLOOD PRESSURES. PT C/O VAGINAL DISCHARGE AND HEADACHE AT THIS TIME. DENIES ANY OTHER S/S OF PIH Movement: Present Contractions: Denies/Absent Rupture of Membranes: Denies Vaginal Discharge: Denies Recent Sexual Intercouse: Denies Abdominal Trauma: Not Applicable Additional Patient Complaints: NONE Time Provider Notified: 03/11/2019 18:00 Provider Notified: GYPSY Initial Plan: NST, BPP, TYLENOL Datetime: 03/09/2019 10:16 Comments: All d/c instractions given to pt. All questions were answered. Pt verbalized understandin g. Datetime: 03/09/2019 08:44 Stage of : Antepartum Temperature Route: Oral Contraction Comments: Hep lock removed, tip intact. Pt tolerated procedure Pain Assessment Pain Scale: 0 Pain Presence: None/Denies Pain Type: N/A Pain Goal: 3 Datetime: 03/09/2019 08:38 Maternal Assessment Level of Consciousness: Fully Conscious Headache: Denies Blurred Vision: No Nausea/Vomiting: Denies RUQ Epigastric Pain: Denies Facial Edema: None Labor Evaluation Frequency: x2 Monitor Mode: External Duration (sec)2399: 40-110 Quality: Mild Pattern: Normal: <= 5 Contractions in 10 Minutes Resting Tone Nice: Relaxed Heart Rate FHR Baseline Rate: 145 Monitor Mode: External US FHR Baseline Changes: No Baseline Change Variability: Moderate 6-25 bpm Accelerations: 15X15 Decelerations: None Category: Category I Pain Assessment Pain Scale: 0 Pain Presence: None/Denies Pain Type: N/A Pain Goal: 3 Vaginal Exam Membrane Status: Intact Datetime: 03/09/2019 08:36 Comments: Dr. Ugarte at bedside to review strip and lab work done on 24 hr urine collection, CMP a nd CBC. New order to send pt home and have her return to triage on Monday for BPP and NST. Have triag e schedule NST/BPP biweekly Datetime: 03/09/2019 08:01 Labor Evaluation Frequency: x4 Monitor Mode: External Duration (sec)2399: 40-80 Quality: Mild Pattern: Normal: <= 5 Contractions in 10 Minutes Resting Tone Nice: Relaxed Heart Rate FHR Baseline Rate: 135 Monitor Mode: External US FHR Baseline Changes: No Baseline Change Variability: Moderate 6-25 bpm Accelerations: 15X15 Decelerations: None Category: Category I Pain Assessment Pain Scale: 0 Pain Presence: None/Denies Pain Type: N/A Pain Goal: 3 Vaginal Exam Membrane Status: Intact Datetime: 03/09/2019 07:18 Stage of : Antepartum Datetime: 03/09/2019 07:00 Labor Evaluation Frequency: X1 Monitor Mode: External Duration (sec)2399: 180 Quality: Mild Resting Tone Nice: Relaxed Heart Rate FHR Baseline Rate: 130 Monitor Mode: External US Variability: Moderate 6-25 bpm Accelerations: 15X15 Decelerations: None Category: Category I Pain Presence: None/Denies Pain Type: N/A Datetime: 03/09/2019 06:10 Stage of : Antepartum Datetime: 03/09/2019 06:00 Stage of : Antepartum Labor Evaluation Frequency: X1 Monitor Mode: External Duration (sec)2399: 150 Quality: Mild Resting Tone Nice: Relaxed Contraction Comments: WITH UTERINE IRRITABILITY Heart Rate FHR Baseline Rate: 130 Monitor Mode: External US Variability: Moderate 6-25 bpm Accelerations: 15X15 Decelerations: None Category: Category I Datetime: 03/09/2019 05:56 Stage of : Antepartum Temperature Route: Oral Datetime: 03/09/2019 05:54 Monitor Mode: External US Datetime: 03/09/2019 05:00 Labor Evaluation Frequency: NONE Monitor Mode: External Quality: Mild Resting Tone Nice: Relaxed Heart Rate FHR Baseline Rate: 130 Monitor Mode: External US Variability: Moderate 6-25 bpm Accelerations: 15X15 Decelerations: None Category: Category I Pain Presence: None/Denies Pain Type: N/A Datetime: 03/09/2019 04:00 Labor Evaluation Frequency: NONE Monitor Mode: External Resting Tone Nice: Relaxed Heart Rate FHR Baseline Rate: 140 Monitor Mode: External US Variability: Moderate 6-25 bpm Accelerations: 15X15 Decelerations: None Category: Category I Pain Presence: None/Denies Pain Type: N/A Pain Assessment Comments: PT SLEEPING BUT EASILY AROUSED Datetime: 03/09/2019 03:00 Labor Evaluation Frequency: X1 Monitor Mode: External Duration (sec)2399: 110 Quality: Mild Resting Tone Nice: Relaxed Heart Rate FHR Baseline Rate: 130 Variability: Moderate 6-25 bpm Accelerations: 15X15 Decelerations: None Category: Category I Pain Presence: None/Denies Pain Type: N/A Datetime: 03/09/2019 02:02 Monitor Mode: External US Datetime: 03/09/2019 02:00 Labor Evaluation Frequency: NONE Monitor Mode: External Resting Tone Nice: Relaxed Heart Rate FHR Baseline Rate: 130 Monitor Mode: External US Variability: Moderate 6-25 bpm Accelerations: 15X15 Decelerations: None Category: Category I Pain Presence: None/Denies Pain Type: N/A Datetime: 03/09/2019 01:00 Labor Evaluation Frequency: X1 Monitor Mode: External Duration (sec)2399: 100 Quality: Mild Resting Tone Nice: Relaxed Heart Rate FHR Baseline Rate: 140 Monitor Mode: External US Variability: Moderate 6-25 bpm Accelerations: 15X15 Decelerations: None Category: Category I Pain Presence: None/Denies Pain Type: N/A Datetime: 03/09/2019 00:26 Monitor Mode: External US Datetime: 03/09/2019 00:00 Labor Evaluation Frequency: NONE Monitor Mode: External Resting Tone Nice: Relaxed Heart Rate FHR Baseline Rate: 150 Monitor Mode: Internal Scalp Electrode Variability: Moderate 6-25 bpm Accelerations: 15X15 Decelerations: None Category: Category I Pain Presence: None/Denies Pain Type: N/A Datetime: 03/08/2019 23:54 Monitor Mode: External US Datetime: 03/08/2019 23:00 Labor Evaluation Frequency: X1 Monitor Mode: External Duration (sec)2399: 80 Resting Tone Nice: Relaxed Heart Rate FHR Baseline Rate: 140 Monitor Mode: External US Variability: Moderate 6-25 bpm Accelerations: 15X15 Decelerations: None Category: Category I Pain Presence: None/Denies Pain Type: N/A Datetime: 03/08/2019 22:48 Monitor Mode: External US Datetime: 03/08/2019 22:21 Stage of : Antepartum Monitor Mode: External US Datetime: 03/08/2019 22:15 Stage of : Antepartum Datetime: 03/08/2019 22:00 Labor Evaluation Frequency: X1 Monitor Mode: External Duration (sec)2399: 90 Quality: Mild Resting Tone Nice: Relaxed Heart Rate FHR Baseline Rate: 140 Monitor Mode: External US Variability: Moderate 6-25 bpm Accelerations: 15X15 Decelerations: None Category: Category I Pain Presence: None/Denies Pain Type: N/A Datetime: 03/08/2019 21:48 Stage of : Antepartum Datetime: 03/08/2019 21:32 Monitor Mode: External US Datetime: 03/08/2019 21:00 Labor Evaluation Frequency: X1 Monitor Mode: External Duration (sec)2399: 90 Quality: Mild Resting Tone Nice: Relaxed Heart Rate FHR Baseline Rate: 140 Monitor Mode: External US Variability: Moderate 6-25 bpm Accelerations: None Decelerations: None Category: Category I Pain Presence: None/Denies Pain Type: N/A Datetime: 03/08/2019 20:31 Stage of : Antepartum Bedside Blood Glucose: 104 Datetime: 03/08/2019 20:00 Labor Evaluation Frequency: X2 Monitor Mode: External Duration (sec)2399: 80-120 Quality: Mild Resting Tone Nice: Relaxed Heart Rate FHR Baseline Rate: 140 Monitor Mode: External US Variability: Moderate 6-25 bpm Accelerations: 15X15 Decelerations: None Category: Category I Pain Presence: None/Denies Pain Type: N/A Datetime: 03/08/2019 19:21 Stage of : Antepartum Assessment Type: Ongoing Assessment Maternal Assessment Level of Consciousness: Fully Conscious DTR's/Clonus: DTRs 2+; No Clonus Headache: Denies Blurred Vision: No Respiratory Effort: Unlabored; Regular Rhythm; Equal Expansion Breath Sounds, Left: Clear and Equal Breath Sounds, Right: Clear and Equal Nausea/Vomiting: Denies RUQ Epigastric Pain: Denies Lower Extremities Edema: None Degree: None Upper Extremities Edema: None Degree: None Facial Edema: None Temperature Route: Oral Fall Risk Assessment History of Falling: (0) No Secondary Diagnosis: (0) No Ambulatory Aid: (0) Bedrest/Nurse Assist IV Therapy: (0) No Gait: (0) Normal/Bedrest/Immobile Mental Status: (0) Oriented to Own Ability Fall Score: 0 Fall Risk Score Definition: No Risk: No action required Monitor Mode: External Contraction Comments: PT DENIES CRAMPING Monitor Mode: External US Comments: PT STATES + FM Pain Presence: None/Denies Pain Type: N/A Vaginal Exam Membrane Status: Intact Vaginal Bleeding: None Datetime: 03/08/2019 18:26 Pain Presence: None/Denies Datetime: 03/08/2019 18:00 Stage of : Antepartum Maternal Assessment Level of Consciousness: Fully Conscious Headache: Denies Nausea/Vomiting: Denies RUQ Epigastric Pain: Denies Labor Evaluation Frequency: 0/hr Monitor Mode: External Heart Rate FHR Baseline Rate: 135 Monitor Mode: External US Variability: Moderate 6-25 bpm Accelerations: 15X15 Decelerations: None Pain Assessment Pain Scale: 1 Pain Presence: Constant Pain Type: Dull Pain Location: Head Pain Relief Measures: Pain Medication Given; Comfort Measures Pain Assessment Comments: tylenol effective per pt. Vaginal Exam Membrane Status: Intact Vaginal Bleeding: None Datetime: 03/08/2019 17:39 Pain Assessment Pain Scale: 1 Pain Presence: Constant Pain Type: Dull Pain Location: Head Pain Relief Measures: Comfort Measures Datetime: 03/08/2019 17:00 Labor Evaluation Frequency: 0/hr Monitor Mode: External Heart Rate FHR Baseline Rate: 135 Monitor Mode: External US Variability: Moderate 6-25 bpm Accelerations: 15X15 Decelerations: None Datetime: 03/08/2019 16:47 Stage of : Antepartum Maternal Assessment Level of Consciousness: Fully Conscious Headache: Denies Nausea/Vomiting: Denies RUQ Epigastric Pain: Denies Temperature Route: Oral Resting Tone Nice: Relaxed Pain Assessment Pain Scale: 3 Pain Presence: Constant Pain Type: Dull Pain Location: Head Pain Relief Measures: Comfort Measures Vaginal Exam Membrane Status: Intact Vaginal Bleeding: None Datetime: 03/08/2019 16:07 Maternal Assessment Level of Consciousness: Fully Conscious Headache: Denies Blurred Vision: No Respiratory Effort: Unlabored Nausea/Vomiting: Denies RUQ Epigastric Pain: Denies Labor Evaluation Frequency: 0/hr Monitor Mode: External Heart Rate FHR Baseline Rate: 150 Monitor Mode: External US Variability: Moderate 6-25 bpm Accelerations: 15X15 Decelerations: None Pain Presence: None/Denies Datetime: 03/08/2019 16:00 Stage of : Antepartum Datetime: 03/08/2019 14:51 Maternal Assessment Level of Consciousness: Fully Conscious Headache: Denies Blurred Vision: No Respiratory Effort: Unlabored Nausea/Vomiting: Denies RUQ Epigastric Pain: Denies Bedside Blood Glucose: 94 Pain Presence: None/Denies Datetime: 03/08/2019 14:22 Stage of : Antepartum Labor Evaluation Frequency: occassional Monitor Mode: External Duration (sec)2399: 50 Quality: Mild Heart Rate FHR Baseline Rate: 145 Monitor Mode: External US Variability: Moderate 6-25 bpm Accelerations: 15X15 Decelerations: None Datetime: 03/08/2019 13:09 Stage of : Antepartum Labor Evaluation Frequency: 0/hr Monitor Mode: External Heart Rate FHR Baseline Rate: 135 Monitor Mode: External US Variability: Moderate 6-25 bpm Accelerations: 15X15 Decelerations: None Datetime: 03/08/2019 11:30 Pain Presence: None/Denies Datetime: 03/08/2019 11:23 Stage of : Antepartum Temperature Route: Oral Datetime: 03/08/2019 10:00 Stage of : Antepartum Labor Evaluation Frequency: irregular Monitor Mode: External Quality: Mild Heart Rate FHR Baseline Rate: 145 Monitor Mode: External US Variability: Moderate 6-25 bpm Accelerations: 15X15 Decelerations: None Datetime: 03/08/2019 09:49 Maternal Assessment Level of Consciousness: Fully Conscious Headache: Denies Blurred Vision: No Respiratory Effort: Unlabored Nausea/Vomiting: Denies RUQ Epigastric Pain: Denies Heart Rate FHR Baseline Rate: 140 Monitor Mode: External US Variability: Moderate 6-25 bpm Accelerations: 15X15 Decelerations: None Datetime: 03/08/2019 09:06 Labor Evaluation Frequency: irregular Monitor Mode: External Quality: Mild Heart Rate FHR Baseline Rate: 145 Monitor Mode: External US Variability: Moderate 6-25 bpm Accelerations: 15X15 Decelerations: None Datetime: 03/08/2019 08:15 Stage of : Antepartum Assessment Type: Ongoing Assessment Maternal Assessment Level of Consciousness: Fully Conscious Maternal Assessment Level of Consciousness: Fully Conscious DTR's/Clonus: DTRs 2+; No Clonus Headache: Denies Headache: Denies Blurred Vision: No Respiratory Effort: Unlabored; Regular Rhythm; Equal Expansion Breath Sounds, Left: Clear and Equal Breath Sounds, Right: Clear and Equal Nausea/Vomiting: Denies Nausea/Vomiting: Denies RUQ Epigastric Pain: Denies RUQ Epigastric Pain: Denies Lower Extremities Edema: None Upper Extremities Edema: None Facial Edema: None Temperature Route: Oral Bedside Blood Glucose: 94 Fall Risk Assessment History of Falling: (0) No Secondary Diagnosis: (0) No Ambulatory Aid: (0) Bedrest/Nurse Assist IV Therapy: (20) Yes Gait: (0) Normal/Bedrest/Immobile Mental Status: (0) Oriented to Own Ability Fall Score: 20 Fall Risk Score Definition: No Risk: No action required Labor Evaluation Frequency: occassional Monitor Mode: External Duration (sec)2399: 60 Quality: Mild Resting Tone Nice: Relaxed Heart Rate FHR Baseline Rate: 140 Monitor Mode: External US Variability: Moderate 6-25 bpm Accelerations: 15X15 Decelerations: None Pain Assessment Pain Scale: 0 Pain Presence: None/Denies Vaginal Exam Membrane Status: Intact (Annotations: pt. denies lof or sromat this time) Vaginal Bleeding: None (Annotations: pt. denies) Datetime: 03/08/2019 07:20 Stage of : Antepartum Stage of : Antepartum Pain Presence: None/Denies Datetime: 03/08/2019 07:05 Stage of : Antepartum Datetime: 03/08/2019 07:00 Labor Evaluation Frequency: X2 Monitor Mode: External Duration (sec)2399: 60-80 Quality: Mild Resting Tone Nice: Relaxed Heart Rate FHR Baseline Rate: 130 Monitor Mode: External US Variability: Moderate 6-25 bpm Accelerations: 15X15 Decelerations: None Category: Category I Pain Presence: None/Denies Pain Type: N/A Datetime: 03/08/2019 06:50 Stage of : Antepartum Datetime: 03/08/2019 06:08 Stage of : Antepartum Temperature Route: Oral Datetime: 03/08/2019 06:00 Labor Evaluation Frequency: X2 Monitor Mode: External Duration (sec)2399: 80-90 Quality: Mild Resting Tone Nice: Relaxed Heart Rate FHR Baseline Rate: 130 Monitor Mode: External US Variability: Moderate 6-25 bpm Accelerations: 15X15 Decelerations: None Category: Category I Pain Presence: None/Denies Pain Type: N/A Datetime: 03/08/2019 05:00 Labor Evaluation Frequency: X2 Monitor Mode: External Duration (sec)2399: 90-110 Quality: Mild Resting Tone Nice: Relaxed Heart Rate FHR Baseline Rate: 130 Monitor Mode: External US Variability: Moderate 6-25 bpm Accelerations: 15X15 Decelerations: None Category: Category I Pain Presence: None/Denies Pain Type: N/A Datetime: 03/08/2019 04:00 Labor Evaluation Frequency: X6 Monitor Mode: External Duration (sec)2399: 60-120 Quality: Mild Resting Tone Nice: Relaxed Heart Rate FHR Baseline Rate: 135 Monitor Mode: External US Variability: Moderate 6-25 bpm Accelerations: 15X15 Decelerations: None Category: Category I Pain Presence: None/Denies Pain Type: N/A Pain Assessment Comments: PT SLEEPINGWITH EVEN UNLABORED BREATHING Datetime: 03/08/2019 03:00 Labor Evaluation Frequency: X4 Monitor Mode: External Duration (sec)2399: 60-120 Quality: Mild Resting Tone Nice: Relaxed Heart Rate FHR Baseline Rate: 130 Monitor Mode: Internal Scalp Electrode Variability: Moderate 6-25 bpm Accelerations: 15X15 Decelerations: None Category: Category I Pain Presence: None/Denies Pain Type: N/A Datetime: 03/08/2019 02:30 Monitor Mode: External US Datetime: 03/08/2019 02:00 Labor Evaluation Frequency: NONE Monitor Mode: External Resting Tone Nice: Relaxed Heart Rate FHR Baseline Rate: 130 Monitor Mode: External US Variability: Moderate 6-25 bpm Accelerations: 15X15 Decelerations: None Category: Category I Pain Presence: None/Denies Pain Type: N/A Datetime: 03/08/2019 01:47 Monitor Mode: External US Datetime: 03/08/2019 01:00 Labor Evaluation Frequency: NONE Monitor Mode: External Resting Tone Nice: Relaxed Heart Rate FHR Baseline Rate: 130 Monitor Mode: External US Variability: Moderate 6-25 bpm Accelerations: 15X15 Decelerations: None Category: Category I Pain Presence: None/Denies Pain Type: N/A Datetime: 03/08/2019 00:00 Labor Evaluation Frequency: NONE Monitor Mode: External Resting Tone Nice: Relaxed Heart Rate FHR Baseline Rate: 135 Monitor Mode: External US Variability: Moderate 6-25 bpm Accelerations: 15X15 Decelerations: None Category: Category I Pain Presence: None/Denies Pain Type: N/A Datetime: 03/07/2019 23:00 Labor Evaluation Frequency: X1 Monitor Mode: External Duration (sec)2399: 90 Quality: Mild Resting Tone Nice: Relaxed Heart Rate FHR Baseline Rate: 145 Monitor Mode: External US Variability: Moderate 6-25 bpm Accelerations: 15X15 Decelerations: None Category: Category I Pain Presence: None/Denies Pain Type: N/A Datetime: 03/07/2019 22:28 Stage of : Antepartum Datetime: 03/07/2019 22:00 Labor Evaluation Frequency: NONE Monitor Mode: External Resting Tone Nice: Relaxed Heart Rate FHR Baseline Rate: 140 Monitor Mode: External US Variability: Moderate 6-25 bpm Accelerations: 15X15 Decelerations: None Category: Category I Pain Presence: None/Denies Pain Type: N/A Datetime: 03/07/2019 21:00 Labor Evaluation Frequency: NONE Monitor Mode: External Resting Tone Nice: Relaxed Heart Rate FHR Baseline Rate: 140 Monitor Mode: External US Variability: Moderate 6-25 bpm Accelerations: 15X15 Decelerations: None Category: Category I Pain Presence: None/Denies Pain Type: N/A Datetime: 03/07/2019 20:00 Labor Evaluation Frequency: NONE Monitor Mode: External Resting Tone Nice: Relaxed Heart Rate FHR Baseline Rate: 135 Monitor Mode: External US Variability: Moderate 6-25 bpm Accelerations: 15X15 Decelerations: None Category: Category I Pain Presence: None/Denies Pain Type: N/A Datetime: 03/07/2019 18:50 Labor Evaluation Frequency: 0 Monitor Mode: External Resting Tone Nice: Relaxed Heart Rate FHR Baseline Rate: 140 Monitor Mode: External US FHR Baseline Changes: No Baseline Change Variability: Moderate 6-25 bpm Accelerations: 15X15 Decelerations: None Category: Category I Datetime: 03/07/2019 17:10 Labor Evaluation Frequency: occasional and irritability Monitor Mode: External Quality: Mild Resting Tone Nice: Relaxed Heart Rate FHR Baseline Rate: 140 Monitor Mode: External US FHR Baseline Changes: No Baseline Change Variability: Moderate 6-25 bpm Accelerations: 15X15 Decelerations: None Category: Category I Datetime: 03/07/2019 16:18 Assessment Type: Admission Assessment Vaginal Bleeding: None Maternal Assessment Level of Consciousness: Fully Conscious DTR's/Clonus: DTRs 2+; No Clonus Headache: Denies Blurred Vision: No Respiratory Effort: Unlabored; Regular Rhythm; Equal Expansion Breath Sounds, Left: Clear and Equal Breath Sounds, Right: Clear and Equal Nausea/Vomiting: Denies RUQ Epigastric Pain: Denies Facial Edema: None Fall Risk Assessment History of Falling: (0) No Secondary Diagnosis: (0) No Ambulatory Aid: (0) Bedrest/Nurse Assist IV Therapy: (0) No Gait: (0) Normal/Bedrest/Immobile Mental Status: (0) Oriented to Own Ability Fall Score: 0 Fall Risk Score Definition: No Risk: No action required Datetime: 03/07/2019 15:59 Labor Evaluation Frequency: irritability Monitor Mode: External Quality: Mild Resting Tone [place]: Relaxed Contraction Comments: pt denies feeling contractions Heart Rate FHR Baseline Rate: 130 Monitor Mode: External US FHR Baseline Changes: No Baseline Change Variability: Moderate 6-25 bpm Accelerations: 15X15 Decelerations: None Category: Category I Datetime: 03/07/2019 10:10 Fall Score: 0 Fall Risk Score Definition: No Risk: No action required Datetime: 03/05/2019 17:20 Time of Arrival: 03/07/2019 14:50 EGA: 34.6 Arrived By: Wheelchair Datetime: 03/05/2019 16:12 EGA: 34.4 Datetime: 03/05/2019 16:06 Fall Score: 0 Fall Risk Score Definition: No Risk: No action required
--- NOTE | 2019-03-14 23:34 | PN ---
Triage Information Date/Time 03/14/19 Reason for visit: IV Iron infusion Weeks of Gestation 36w2d /Para A3 Diabetes: gestational Diabetes management: oral agent Hypertention: induced Additional information on metformin 500mg TID aldomet 250 q8hrs Objective Vital Signs Date Temp Pulse Resp B/P (MAP) Pulse Ox O2 O2 Flow FiO2 Time Delivery Rate 03/14/19 98.2 93 18 102/67 Room Air 19:56 (79) Heart Rate: 140's Contractions: None Results/Medications Medications Ferrlicet 125mg IVPB VB12 1000mcg IM tylenol 1000g po Imaging Results A IUP 36w2d severe anemia GDM GHTN P RTH on 03/16/19 for IV IRON with NST SHIRLEY once/week 13.0 on 03/13/19 JUANIS LEBRON MD March 14, 2019 23:34
== END 2019-03-14 23:00 | disposition home or self-care (01) ==
LOC: OBT 16:49 → L-D 16:50 → OBT 23:00
PROVIDERS: ATTEND Obstetrics & Gynecology
DX: O24.415 Gestational diabetes mellitus in pregnancy, controlled by oral hypoglycemic drugs (principal); O13.3 Gestational [pregnancy-induced] hypertension without significant proteinuria, third trimester; O99.013 Anemia complicating pregnancy, third trimester; O09.523 Supervision of elderly multigravida, third trimester; Z3A.36 36 weeks gestation of pregnancy
CPT/HCPCS: 96365; J2916; J3420; Z7500; Z7610; G0463

== ENCOUNTER 2019-03-16 16:36 | Outpatient (CLI) | payer MEDICAID ==
[~2019-03-16] VITALS: Ht 167.6 cm; Wt 72.8 kg
[2019-03-16 17:02] VITALS: Ht 167.6 cm; Wt 72.8 kg
[2019-03-16 17:03] VITALS: BP 108/59; PULSE 83; RESP 18
[2019-03-16] MEDS ORDERED: LACTATED RINGER'S 1,000 ML IV SCH (17:30)
[2019-03-16] MEDS ORDERED: SOD FERRIC GLUC COMPLX 125 MG in SOD CHLORIDE 0.9% 100 ML IVPB ONE (18:00)
--- NOTE | 2019-03-16 20:33 | PN ---
Triage Information Date/Time Reason for visit: Antepartum testing for diabetes mellitus and chronic hypertension Weeks of Gestation 36 weeks and 5 days /Para Diabetes: pre-gestational Diabetes management: oral agent (Metformin 1000 mg every 8 hours) Hypertention: essential (On labetalol 250 mg every 8 hours) Objective Vital Signs Date Temp Pulse Resp B/P (MAP) Pulse Ox O2 O2 Flow FiO2 Time Delivery Rate 03/16/19 98.2 83 18 108/59 17:03 (75) Heart Rate: 140's Contractions: None Results/Medications Medications Current Medications Lactated Ringer's 1,000 ml @ 125 mls/hr Q8H IV Last administered on 03/16/19at 17:53; Admin Dose 125 MLS/HR; Start 03/16/19 at 17:30 Disposition: Discharge Assessment/Plan 38 years old -0-3-2 with single intrauterine at 36 weeks and 5 days with a HARINDER of 04/08/2019 with the chronic hypertension and pre-gestational diabetes present for NST. She had ultrasound 3 days ago with a normal amniotic fluid.She states good movement. She denies nausea, vomiting, shortness of breath, chest pain, headache, visual changes, vaginal bleeding or LOF. -FHR: No sign of metabolic acidosis- Category I -Contractions: None -Symptoms and sign of labor, preeclampsia, kick count discussed with patient, she voiced understanding. All of her questions answered. -Patient was discharged home in stable condition with the appropriate discharge instructions provided. I would like patient to have close follow-up with her primary physician or outpatient clinic in 1-2 days or return to triage for worsening symptoms or any other urgent concerns. She was scheduled for another NST with SHIRLEY in 3 days. RADHA NGUYEN March 16, 2019 20:33
--- NOTE | 2019-03-17 04:22 | TRIAGE ---
OB Triage Datetime Report Generated by CPN: 03/17/2019 04:21 Datetime: 03/16/2019 17:51 Labor Evaluation Frequency: x1 Monitor Mode: External Duration (sec)2399: 60 Pattern: Normal: <= 5 Contractions in 10 Minutes Resting Tone [place]: Relaxed Heart Rate FHR Baseline Rate: 135 Monitor Mode: External US Variability: Moderate 6-25 bpm Accelerations: 10X10 Decelerations: None Category: Category I Pain Assessment Pain Scale: 0 Pain Presence: None/Denies Pain Goal: 3 Pain Relief Measures: Comfort Measures Datetime: 03/16/2019 16:52 Stage of : OB Triage Assessment Type: Triage Maternal Assessment Level of Consciousness: Fully Conscious DTR's/Clonus: DTRs 2+; No Clonus Headache: Denies Blurred Vision: No Respiratory Effort: Unlabored; Regular Rhythm; Equal Expansion Breath Sounds, Left: Clear and Equal Breath Sounds, Right: Clear and Equal Nausea/Vomiting: Denies RUQ Epigastric Pain: Denies Facial Edema: None Temperature Route: Axillary Fall Risk Assessment History of Falling: (0) No Secondary Diagnosis: (0) No Ambulatory Aid: (0) Bedrest/Nurse Assist IV Therapy: (0) No Gait: (0) Normal/Bedrest/Immobile Mental Status: (0) Oriented to Own Ability Fall Score: 0 Fall Risk Score Definition: No Risk: No action required Labor Evaluation Frequency: 0 Monitor Mode: External Pattern: Normal: <= 5 Contractions in 10 Minutes Resting Tone [place]: Relaxed Heart Rate FHR Baseline Rate: 150 Monitor Mode: External US Variability: Moderate 6-25 bpm Accelerations: None Decelerations: None Pain Assessment Pain Scale: 0 Pain Presence: None/Denies Pain Type: N/A Pain Goal: 3 Pain Relief Measures: Comfort Measures Datetime: 03/16/2019 16:51 Time of Arrival: 03/16/2019 16:40 EGA: 36.5 Arrived By: Ambulatory Arrived From: Home Chief Complaint: RETURN FOR IRON INFUSION, DENIES LEAKING, BLEEDING OR UC'S Movement: Present Contractions: Denies/Absent Rupture of Membranes: Denies Vaginal Bleeding: None Vaginal Discharge: Denies Recent Sexual Intercouse: Denies Abdominal Trauma: Not Applicable Patient Complaints: Headache Initial Plan: MONITOR, IRON INFUSION Datetime: 03/14/2019 21:55 Pain Assessment Pain Scale: 0 Pain Presence: None/Denies Pain Type: N/A Datetime: 03/14/2019 21:06 Pain Assessment Pain Scale: 6 Datetime: 03/14/2019 19:56 Fall Score: 0 Fall Risk Score Definition: No Risk: No action required Datetime: 03/14/2019 19:50 EGA: 36.3 Datetime: 03/13/2019 08:48 Fall Score: 0 Fall Risk Score Definition: No Risk: No action required Datetime: 03/11/2019 18:01 EGA: 36.2 Datetime: 03/11/2019 17:50 Fall Score: 0 Fall Risk Score Definition: No Risk: No action required Datetime: 03/11/2019 17:35 EGA: 35.3 Datetime: 03/08/2019 19:21 Fall Score: 0 Fall Risk Score Definition: No Risk: No action required Datetime: 03/08/2019 08:15 Fall Score: 20 Fall Risk Score Definition: No Risk: No action required Datetime: 03/07/2019 16:18 Fall Score: 0 Fall Risk Score Definition: No Risk: No action required Datetime: 03/07/2019 10:10 Fall Score: 0 Fall Risk Score Definition: No Risk: No action required Datetime: 03/05/2019 17:20 EGA: 34.6 Datetime: 03/05/2019 16:12 EGA: 34.4 Datetime: 03/05/2019 16:06 Fall Score: 0 Fall Risk Score Definition: No Risk: No action required
== END 2019-03-16 20:35 | disposition home or self-care (01) ==
LOC: L-D 16:36 → OBT 16:36
PROVIDERS: ATTEND Obstetrics & Gynecology
DX: O24.415 Gestational diabetes mellitus in pregnancy, controlled by oral hypoglycemic drugs (principal); O16.3 Unspecified maternal hypertension, third trimester; O09.523 Supervision of elderly multigravida, third trimester; Z3A.36 36 weeks gestation of pregnancy
CPT/HCPCS: 36415; 76818; 96360; 96361; 96367; J2916; J7120; Z7500; Z7610; G0463

== ENCOUNTER 2019-03-17 14:22 | Outpatient (CLI) | payer MEDICAID ==
[~2019-03-17] VITALS: Ht 175.3 cm; Wt 74.8 kg
[2019-03-17 16:04] VITALS: Ht 175.3 cm; Wt 74.8 kg
[2019-03-17] MEDS ORDERED: SOD CHLORIDE 0.9% 1,000 ML IV SCH (16:30)
[2019-03-17] MEDS ORDERED: SOD FERRIC GLUC COMPLX 125 MG in SOD CHLORIDE 0.9% 100 ML IVPB ONE (18:00)
[2019-03-17] MEDS ORDERED: CYANOCOBALAMIN 1000 MCG INJ IM ONE (18:00)
--- NOTE | 2019-03-17 18:28 | PN ---
Triage Information Date/Time Reason for visit: NST and IV iron injection Weeks of Gestation 36 weeks and 6 days /Para -0-3-2 Diabetes: pre-gestational Hypertention: essential Objective Heart Rate: 140's Contractions: None Results/Medications Medications Current Medications Sodium Chloride 1,000 ml @ 125 mls/hr Q8H IV Last administered on 03/17/19at 16:23; Admin Dose 125 MLS/HR; Start 03/17/19 at 16:30 Ferric Sodium Gluconate Complex 125 mg/Sodium Chloride 100 ml @ 100 mls/hr ONCE ONCE IVPB Last administered on 03/17/19at 17:31; Admin Dose 100 MLS/HR; Start 03/17/19 at 18:00; Stop 03/17/19 at 18:59 Disposition: Discharge Assessment/Plan 38 years old -0-3-2 with 2 previous delivery, diabetes mellitus and chronic hypertension on metformin 1000 mg 3 times daily and methyldopa 250 mg every 8 hours present for IV iron for iron deficiency anemia.She states good movement. She denies nausea, vomiting, shortness of breath, chest pain, headache, visual changes, vaginal bleeding or LOF. -FHR: No sign of metabolic acidosis- Category I -Contractions: None -Ferrlecit 125 mg IV given -Symptoms and sign of labor, preeclampsia, kick count discussed with patient, she voiced understanding. All of her questions answered. -Patient was discharged home in stable condition with the appropriate discharge instructions provided. I would like patient to have close follow-up with her primary physician or outpatient clinic in 1-2 days or return to triage for worsening symptoms or any other urgent concerns. RADHA NGUYEN March 17, 2019 18:28
--- NOTE | 2019-03-17 19:56 | TRIAGE ---
OB Triage Datetime Report Generated by CPN: 03/17/2019 19:55 Datetime: 03/17/2019 19:29 Frequency: NONE Monitor Mode: External Resting Tone [place]: Relaxed FHR Baseline Rate: 135 Monitor Mode: External US Variability: Moderate 6-25 bpm Accelerations: 15X15 Decelerations: None Category: Category I Datetime: 03/17/2019 19:00 Stage of : OB Triage Level of Consciousness: Fully Conscious DTR's/Clonus: DTRs 1+ Headache: Denies Breath Sounds, Left: Clear and Equal Breath Sounds, Right: Clear and Equal Nausea/Vomiting: Denies RUQ Epigastric Pain: Denies Frequency: OCC Monitor Mode: External Duration (sec)2399: 40-80 Quality: Mild Pattern: Normal: <= 5 Contractions in 10 Minutes Resting Tone [place]: Relaxed FHR Baseline Rate: 140 Monitor Mode: External US Variability: Marked >25 bpm Accelerations: 15X15 Decelerations: None Category: Category I Pain Scale: 0 Pain Presence: None/Denies Pain Type: N/A Pain Goal: 3 Membrane Status: Intact Datetime: 03/17/2019 18:00 Stage of : OB Triage Level of Consciousness: Fully Conscious DTR's/Clonus: DTRs 1+ Headache: Denies Breath Sounds, Left: Clear and Equal Breath Sounds, Right: Clear and Equal Nausea/Vomiting: Denies RUQ Epigastric Pain: Denies Frequency: X1 Monitor Mode: External Duration (sec)2399: 60 Quality: Mild Resting Tone [place]: Relaxed FHR Baseline Rate: 140 Monitor Mode: External US Variability: Marked >25 bpm Accelerations: 10X10 Decelerations: None Category: Category I Pain Scale: 0 Pain Presence: None/Denies Pain Type: N/A Pain Goal: 3 Membrane Status: Intact Datetime: 03/17/2019 17:00 Stage of : OB Triage Level of Consciousness: Fully Conscious DTR's/Clonus: DTRs 1+ Headache: Denies Breath Sounds, Left: Clear and Equal Breath Sounds, Right: Clear and Equal Nausea/Vomiting: Denies RUQ Epigastric Pain: Denies Frequency: X1 Monitor Mode: External Duration (sec)2399: 60 Quality: Mild Resting Tone [place]: Relaxed FHR Baseline Rate: 140 Monitor Mode: External US Variability: Marked >25 bpm Accelerations: 10X10 Decelerations: None Category: Category I Pain Scale: 0 Pain Presence: None/Denies Pain Type: N/A Pain Goal: 3 Membrane Status: Intact Datetime: 03/17/2019 16:30 Level of Consciousness: Fully Conscious DTR's/Clonus: DTRs 1+ Headache: Denies Blurred Vision: No Respiratory Effort: Unlabored Breath Sounds, Left: Clear and Equal Breath Sounds, Right: Clear and Equal Nausea/Vomiting: Denies RUQ Epigastric Pain: Denies Facial Edema: None Frequency: none Monitor Mode: External Resting Tone [place]: Relaxed FHR Baseline Rate: 140 Monitor Mode: External US Variability: Marked >25 bpm Accelerations: 10X10 Decelerations: None Category: Category I Pain Scale: 0 Pain Presence: None/Denies Pain Type: N/A Pain Goal: 3 Membrane Status: Intact Datetime: 03/17/2019 16:03 Assessment Type: Triage Level of Consciousness: Fully Conscious DTR's/Clonus: DTRs 2+; No Clonus Headache: Denies Blurred Vision: No Respiratory Effort: Unlabored; Regular Rhythm; Equal Expansion Breath Sounds, Left: Clear and Equal Breath Sounds, Right: Clear and Equal Nausea/Vomiting: Denies RUQ Epigastric Pain: Denies Lower Extremities Edema: None Degree: None Upper Extremities Edema: None Degree: None Facial Edema: None History of Falling: (0) No Secondary Diagnosis: (0) No Ambulatory Aid: (0) Bedrest/Nurse Assist IV Therapy: (0) No Gait: (0) Normal/Bedrest/Immobile Mental Status: (0) Oriented to Own Ability Fall Score: 0 Fall Risk Score Definition: No Risk: No action required Datetime: 03/17/2019 14:11 Time of Arrival: 03/17/2019 14:11 EGA: 36.6 Arrived By: Ambulatory Arrived From: Home Chief Complaint: PT CAME IN FROM CLINIC FOR IRON INFUCION AND VITAMIN B12 Movement: Present Contractions: Denies/Absent Rupture of Membranes: Denies Vaginal Discharge: Denies Recent Sexual Intercouse: Denies Abdominal Trauma: Not Applicable Patient Complaints: None Additional Patient Complaints: NONE Time Provider Notified: 03/17/2019 13:25 Provider Notified: HADADIAN Initial Plan: NST, VIT B12 AND IRON, BS Datetime: 03/16/2019 20:20 Stage of : OB Triage Monitor Mode: External Quality: Mild Pattern: Normal: <= 5 Contractions in 10 Minutes Resting Tone [place]: Relaxed FHR Baseline Rate: 145 Monitor Mode: External US FHR Baseline Changes: No Baseline Change Variability: Moderate 6-25 bpm Accelerations: 15X15 Decelerations: None Category: Category I Datetime: 03/16/2019 19:20 Stage of : OB Triage Headache: Denies Blurred Vision: No Nausea/Vomiting: Denies RUQ Epigastric Pain: Denies Facial Edema: None Monitor Mode: External Quality: Mild Pattern: Normal: <= 5 Contractions in 10 Minutes Resting Tone [place]: Relaxed FHR Baseline Rate: 145 Monitor Mode: External US FHR Baseline Changes: No Baseline Change Variability: Moderate 6-25 bpm Accelerations: 15X15 Decelerations: None Category: Category I Pain Scale: 0 Pain Presence: None/Denies Pain Type: N/A Datetime: 03/16/2019 16:52 Fall Score: 0 Fall Risk Score Definition: No Risk: No action required Datetime: 03/16/2019 16:51 EGA: 36.5
== END 2019-03-17 19:39 | disposition home or self-care (01) ==
LOC: OBT 14:22 → L-D 14:22 → OBT 19:39
PROVIDERS: ATTEND Obstetrics & Gynecology
DX: O24.415 Gestational diabetes mellitus in pregnancy, controlled by oral hypoglycemic drugs (principal); O16.3 Unspecified maternal hypertension, third trimester; O26.893 Other specified pregnancy related conditions, third trimester; D50.9 Iron deficiency anemia, unspecified; O34.219 Maternal care for unspecified type scar from previous cesarean delivery; O09.523 Supervision of elderly multigravida, third trimester; Z3A.36 36 weeks gestation of pregnancy
CPT/HCPCS: J2916; J3420; J7030; Z7610; 96360; 96361; 96365

== ENCOUNTER 2019-03-19 15:35 | Outpatient (CLI) | payer MEDICAID ==
[~2019-03-19] VITALS: Ht 175.3 cm; Wt 74.8 kg
[2019-03-19 15:51] VITALS: Ht 175.3 cm; Wt 74.8 kg
[2019-03-19] MEDS ORDERED: SOD CHLORIDE 0.9% 1,000 ML IV ONE (16:30)
[2019-03-19] MEDS ORDERED: SOD FERRIC GLUC COMPLX 125 MG in SOD CHLORIDE 0.9% 100 ML IVPB ONE (17:30)
--- NOTE | 2019-03-19 20:27 | PN ---
Triage Information Date/Time Reason for visit: severe anemia Weeks of Gestation 37 weeks /Para Diabetes: pre-gestational Diabetes management: oral agent Hypertention: essential Additional information severe anemia Objective Heart Rate: 120's Heart Rate Comments Reactive Results/Medications Medications Current Medications Sodium Chloride 1,000 ml @ 125 mls/hr Q8H ONCE IV Last administered on 03/19/19at 16:33; Admin Dose 125 MLS/HR; Start 03/19/19 at 16:30; Stop 03/20/19 at 00:29 Imaging Results BPP 05/30 Disposition: Discharge Assessment/Plan Patient received IV iron. Follow up antepartum testing on 03/22/2019. TONIA HARRIS MD March 19, 2019 20:27
--- NOTE | 2019-03-19 21:05 | TRIAGE ---
OB Triage Datetime Report Generated by CPN: 03/19/2019 21:04 Datetime: 03/19/2019 20:21 Labor Evaluation Frequency: x1 Monitor Mode: External (Annotations: removed) Duration (sec)2399: 140 Pattern: Normal: <= 5 Contractions in 10 Minutes Heart Rate FHR Baseline Rate: 145 Monitor Mode: External US (Annotations: removed) Variability: Moderate 6-25 bpm Accelerations: 15X15 Decelerations: None Category: Category I Datetime: 03/19/2019 20:00 Labor Evaluation Frequency: x1 Monitor Mode: External Duration (sec)2399: 80 Pattern: Normal: <= 5 Contractions in 10 Minutes Heart Rate FHR Baseline Rate: 140 Monitor Mode: External US Variability: Moderate 6-25 bpm Accelerations: 15X15 Decelerations: None Category: Category I Datetime: 03/19/2019 19:39 Stage of : OB Triage Assessment Type: Triage Maternal Assessment Level of Consciousness: Fully Conscious DTR's/Clonus: DTRs 2+; No Clonus Headache: Denies Blurred Vision: No Respiratory Effort: Unlabored; Regular Rhythm; Equal Expansion Breath Sounds, Left: Clear and Equal Breath Sounds, Right: Clear and Equal Nausea/Vomiting: Denies RUQ Epigastric Pain: Denies Lower Extremities Edema: None Degree: None Upper Extremities Edema: None Degree: None Facial Edema: None Temperature Route: Oral Fall Risk Assessment History of Falling: (0) No Secondary Diagnosis: (0) No Ambulatory Aid: (0) Bedrest/Nurse Assist IV Therapy: (0) No Gait: (0) Normal/Bedrest/Immobile Mental Status: (0) Oriented to Own Ability Fall Score: 0 Fall Risk Score Definition: No Risk: No action required Comments: Patient states she feels active movement. Pain Assessment Pain Scale: 0 Pain Presence: None/Denies Pain Type: N/A Datetime: 03/19/2019 19:38 Monitor Mode: External (Annotations: Reapplied) Resting Tone [place]: Relaxed Monitor Mode: External US (Annotations: Reapplied) Datetime: 03/19/2019 17:09 Stage of : OB Triage Labor Evaluation Frequency: 0 Monitor Mode: External Pattern: Normal: <= 5 Contractions in 10 Minutes Resting Tone [place]: Relaxed Heart Rate FHR Baseline Rate: 150 Monitor Mode: External US Variability: Moderate 6-25 bpm Accelerations: 15X15 Decelerations: None Category: Category I Datetime: 03/19/2019 16:22 Time of Arrival: 03/19/2019 15:31 EGA: 37.1 Arrived By: Ambulatory Arrived From: Home Chief Complaint: Iron Infusion and BPP Movement: Present Contractions: Denies/Absent Rupture of Membranes: Denies Vaginal Bleeding: Normal Show Vaginal Discharge: Denies Recent Sexual Intercouse: Denies Abdominal Trauma: Not Applicable Patient Complaints: None Time Provider Notified: 03/19/2019 15:50 Provider Notified: Samanthashannonnell Initial Plan: NST, BPP, Iron infusion Datetime: 03/19/2019 16:20 Labor Evaluation Frequency: x1 UC noted Monitor Mode: External Duration (sec)2399: 80 Quality: Mild Pattern: Normal: <= 5 Contractions in 10 Minutes Resting Tone [place]: Relaxed Heart Rate FHR Baseline Rate: 140 Monitor Mode: External US FHR Baseline Changes: No Baseline Change Variability: Moderate 6-25 bpm Accelerations: 15X15 Decelerations: None Category: Category I Pain Presence: None/Denies Datetime: 03/19/2019 15:48 Assessment Type: Triage Maternal Assessment Level of Consciousness: Fully Conscious DTR's/Clonus: DTRs 2+; No Clonus Headache: Denies Blurred Vision: No Respiratory Effort: Unlabored; Regular Rhythm; Equal Expansion Breath Sounds, Left: Clear and Equal Breath Sounds, Right: Clear and Equal Nausea/Vomiting: Denies RUQ Epigastric Pain: Denies Lower Extremities Edema: None Degree: None Upper Extremities Edema: None Degree: None Facial Edema: None Temperature Route: Oral Fall Risk Assessment History of Falling: (0) No Secondary Diagnosis: (0) No Ambulatory Aid: (0) Bedrest/Nurse Assist IV Therapy: (0) No Gait: (0) Normal/Bedrest/Immobile Mental Status: (0) Oriented to Own Ability Fall Score: 0 Fall Risk Score Definition: No Risk: No action required Datetime: 03/17/2019 16:03 Fall Score: 0 Fall Risk Score Definition: No Risk: No action required Datetime: 03/17/2019 14:11 EGA: 36.6 Datetime: 03/16/2019 16:52 Fall Score: 0 Fall Risk Score Definition: No Risk: No action required Datetime: 03/16/2019 16:51 EGA: 36.5 Datetime: 03/14/2019 19:56 Fall Score: 0 Fall Risk Score Definition: No Risk: No action required Datetime: 03/14/2019 19:50 EGA: 36.3 Datetime: 03/13/2019 08:48 Fall Score: 0 Fall Risk Score Definition: No Risk: No action required Datetime: 03/11/2019 18:01 EGA: 36.2 Datetime: 03/11/2019 17:50 Fall Score: 0 Fall Risk Score Definition: No Risk: No action required Datetime: 03/11/2019 17:35 EGA: 35.3 Datetime: 03/08/2019 19:21 Fall Score: 0 Fall Risk Score Definition: No Risk: No action required Datetime: 03/08/2019 08:15 Fall Score: 20 Fall Risk Score Definition: No Risk: No action required Datetime: 03/07/2019 16:18 Fall Score: 0 Fall Risk Score Definition: No Risk: No action required Datetime: 03/07/2019 10:10 Fall Score: 0 Fall Risk Score Definition: No Risk: No action required Datetime: 03/05/2019 17:20 EGA: 34.6 Datetime: 03/05/2019 16:12 EGA: 34.4 Datetime: 03/05/2019 16:06 Fall Score: 0 Fall Risk Score Definition: No Risk: No action required
== END 2019-03-19 20:42 | disposition home or self-care (01) ==
LOC: L-D 15:35 → OBT 15:35
PROVIDERS: ATTEND Obstetrics & Gynecology
DX: O99.013 Anemia complicating pregnancy, third trimester (principal); D64.9 Anemia, unspecified; O24.415 Gestational diabetes mellitus in pregnancy, controlled by oral hypoglycemic drugs; O16.3 Unspecified maternal hypertension, third trimester; Z3A.37 37 weeks gestation of pregnancy
CPT/HCPCS: 36415; 76818; 96360; 96361; 96367; J2916; J7030; Z7500; Z7610; G0463

== ENCOUNTER 2019-03-22 15:59 | Outpatient (CLI) | payer MEDICAID ==
[~2019-03-22] VITALS: Ht 167.6 cm; Wt 73.5 kg
[2019-03-22 17:51] VITALS: Ht 167.6 cm; Wt 73.5 kg
[2019-03-22 17:52] VITALS: BP 94/59; PULSE 88; RESP 18
[2019-03-22] MEDS ORDERED: SOD FERRIC GLUC COMPLX 125 MG in SOD CHLORIDE 0.9% 100 ML IVPB ONE (18:30)
[2019-03-22] MEDS ORDERED: LACTATED RINGER'S 1,000 ML IV SCH (18:30)
[2019-03-22] MEDS ORDERED: morphine 10 MG INJ ONE (18:33)
--- NOTE | 2019-03-22 20:58 | PN ---
Triage Information Date/Time Reason for visit: Anemia here for iron infusion Weeks of Gestation 38-year-old 6 para 2 at 37 weeks and 4 days of gestation with estimated date of delivery 04/08/2019 Patient with anemia and has been receiving iron infusion for the last few weeks Patient reports positive movement, denies vaginal bleeding or leaking fluid, denies any contractions Obstetrical history significant for x2 /Para 6 para 2 Diabetes: none Hypertention: none Objective Vital Signs Date Temp Pulse Resp B/P (MAP) Pulse Ox O2 O2 Flow FiO2 Time Delivery Rate 03/22/19 98.4 88 18 94/59 (71) 17:52 Heart Rate: 140's Heart Rate Comments heart rate tracing category 1 Contractions: None Results/Medications Result Diagram: 03/22/192005 Results 24 hrs Laboratory Tests Test 03/22/19 20:00 03/22/19 20:06 Urine Color YELLOW Urine Clarity SLIGHTLY CLOUDY A Urine pH 7.0 Urine Specific [place] 1.018 Urine Ketones TRACE A Urine Nitrite NEGATIVE Urine Bilirubin NEGATIVE Urine Urobilinogen 2+ H Urine Leukocyte Esterase NEGATIVE Urine Microscopic RBC 0 Urine Microscopic WBC 1 Urine Squamous Epithelial Cells FEW Urine Bacteria FEW A Urine Mucus FEW A Urine Hemoglobin NEGATIVE Urine Glucose NEGATIVE Urine Total Protein NEGATIVE Membranes Rupture NEGATIVE White Blood Count 8.0 Red Blood Count 3.56 L Hemoglobin 7.7 L Hematocrit 25.3 L Mean Corpuscular Volume 71.1 L Mean Corpuscular Hemoglobin 21.6 L Mean Corpuscular Hemoglobin Concent 30.4 L Red Cell Distribution Width 23.3 #H Platelet Count 267 Mean Platelet Volume 8.9 Immature Granulocytes % 0.500 H Neutrophils % 60.2 Lymphocytes % 31.2 Monocytes % 6.1 Eosinophils % 1.5 Basophils % 0.5 Nucleated Red Blood Cells % 0.0 Immature Granulocytes # 0.040 H Neutrophils # 4.8 Lymphocytes # 2.5 Monocytes # 0.5 Eosinophils # 0.1 Basophils # 0.0 Nucleated Red Blood Cells # 0.0 Medications Current Medications Lactated Ringer's 1,000 ml @ 125 mls/hr Q8H IV Last administered on 03/22/19at 18:45; Admin Dose 125 MLS/HR; Start 03/22/19 at 18:30 Imaging Results PROCEDURE: US OB. CLINICAL INDICATION: Contractions TECHNIQUE: Multiple sonographic images of the pelvis were obtained. The images were reviewed on a PACS workstation. COMPARISON: 03/11/2019 FINDINGS: There is a single live intrauterine . cardiac activity is identified at a rate of 146 beats per minute. presentation is cephalic. Placenta is anterior grade II. Biophysical profile score is as follows: Breathing 2 Movements 2 Tone 2 Fluid volume 2 Amniotic fluid index = 14 cm Total biophysical profile score = 8/8 IMPRESSION: Biophysical profile score = 8/8 RPTAT: HH .Rick Morris MD, MD Date Time Electronically viewed and signed by .Rick Morris MD, MD on 03/22/2019 18:18 .W/ CC: RADHA NGUYEN [id number] Disposition: Discharge Assessment/Plan Patient received iron infusion She has an appointment with perinatologist on Monday, March 25, 2019 for follow-up and recommendation for a date for repeat Labor precautions were given kick count instructions were given Patient instructed to follow-up with her own H[employer] W[employer] ARTIST in 1 to 2 days JOLENE BETANCUR MD March 22, 2019 20:58
--- NOTE | 2019-03-22 22:00 | TRIAGE ---
OB Triage Datetime Report Generated by CPN: 03/22/2019 21:59 Datetime: 03/22/2019 21:17 Stage of : OB Triage Datetime: 03/22/2019 20:44 Stage of : OB Triage Heart Rate FHR Baseline Rate: 145 Monitor Mode: External US FHR Baseline Changes: No Baseline Change Variability: Moderate 6-25 bpm Accelerations: 15X15 Datetime: 03/22/2019 20:10 Stage of : OB Triage Datetime: 03/22/2019 20:01 Stage of : OB Triage Vaginal Exam Amniotic Fluid Amount: None Amniotic Fluid Odor: None Pool: Negative Nitrazine: Negative Datetime: 03/22/2019 19:39 Stage of : OB Triage Quality: Mild Pattern: Normal: <= 5 Contractions in 10 Minutes Resting Tone [place]: Relaxed Heart Rate FHR Baseline Rate: 140 Monitor Mode: External US FHR Baseline Changes: No Baseline Change Variability: Moderate 6-25 bpm Accelerations: 15X15 Decelerations: None Category: Category I Pain Presence: None/Denies Datetime: 03/22/2019 19:17 Stage of : OB Triage Monitor Mode: External Quality: Mild Pattern: Normal: <= 5 Contractions in 10 Minutes Resting Tone [place]: Relaxed Heart Rate FHR Baseline Rate: 135 Monitor Mode: External US FHR Baseline Changes: No Baseline Change Variability: Moderate 6-25 bpm Accelerations: 15X15 Decelerations: None Category: Category I Pain Assessment Pain Scale: 0 Pain Presence: None/Denies Pain Type: N/A Datetime: 03/22/2019 18:26 Stage of : OB Triage Datetime: 03/22/2019 17:38 Stage of : OB Triage Assessment Type: Triage Maternal Assessment Level of Consciousness: Fully Conscious DTR's/Clonus: DTRs 2+; No Clonus Headache: Denies Blurred Vision: No Respiratory Effort: Unlabored; Regular Rhythm; Equal Expansion Breath Sounds, Left: Clear and Equal Breath Sounds, Right: Clear and Equal Nausea/Vomiting: Denies RUQ Epigastric Pain: Denies Facial Edema: None Temperature Route: Axillary Fall Risk Assessment History of Falling: (0) No Secondary Diagnosis: (0) No Ambulatory Aid: (0) Bedrest/Nurse Assist IV Therapy: (0) No Gait: (0) Normal/Bedrest/Immobile Mental Status: (0) Oriented to Own Ability Fall Score: 0 Fall Risk Score Definition: No Risk: No action required Labor Evaluation Frequency: 0 Monitor Mode: External Pattern: Normal: <= 5 Contractions in 10 Minutes Resting Tone [place]: Relaxed Heart Rate FHR Baseline Rate: 135 Monitor Mode: External US Variability: Moderate 6-25 bpm Accelerations: 10X10 Decelerations: None Category: Category I Pain Assessment Pain Scale: 0 Pain Presence: None/Denies Pain Type: N/A Pain Goal: 3 Pain Relief Measures: Comfort Measures Datetime: 03/22/2019 17:37 Time of Arrival: 03/22/2019 15:55 EGA: 37.4 Arrived By: Ambulatory Arrived From: Home Chief Complaint: FOLLOW UP NST/BPP FOR PREVIOUS IRON INFUSION, DENIES LEAKING, BLEEDING OR UC'S Movement: Present Contractions: Denies/Absent Rupture of Membranes: Denies Vaginal Bleeding: None Vaginal Discharge: Denies Recent Sexual Intercouse: Denies Abdominal Trauma: Not Applicable Patient Complaints: None Time Provider Notified: 03/22/2019 18:26 Provider Notified: Dr Casas Initial Plan: MONITOR, BPP Datetime: 03/19/2019 19:39 Fall Score: 0 Fall Risk Score Definition: No Risk: No action required Datetime: 03/19/2019 16:22 EGA: 37.1 Datetime: 03/19/2019 15:48 Fall Score: 0 Fall Risk Score Definition: No Risk: No action required Datetime: 03/17/2019 16:03 Fall Score: 0 Fall Risk Score Definition: No Risk: No action required Datetime: 03/17/2019 14:11 EGA: 36.6 Datetime: 03/16/2019 16:52 Fall Score: 0 Fall Risk Score Definition: No Risk: No action required Datetime: 03/16/2019 16:51 EGA: 36.5 Datetime: 03/14/2019 19:56 Fall Score: 0 Fall Risk Score Definition: No Risk: No action required Datetime: 03/14/2019 19:50 EGA: 36.3 Datetime: 03/13/2019 08:48 Fall Score: 0 Fall Risk Score Definition: No Risk: No action required Datetime: 03/11/2019 18:01 EGA: 36.2 Datetime: 03/11/2019 17:50 Fall Score: 0 Fall Risk Score Definition: No Risk: No action required Datetime: 03/11/2019 17:35 EGA: 35.3 Datetime: 03/08/2019 19:21 Fall Score: 0 Fall Risk Score Definition: No Risk: No action required Datetime: 03/08/2019 08:15 Fall Score: 20 Fall Risk Score Definition: No Risk: No action required Datetime: 03/07/2019 16:18 Fall Score: 0 Fall Risk Score Definition: No Risk: No action required Datetime: 03/07/2019 10:10 Fall Score: 0 Fall Risk Score Definition: No Risk: No action required Datetime: 03/05/2019 17:20 EGA: 34.6 Datetime: 03/05/2019 16:12 EGA: 34.4 Datetime: 03/05/2019 16:06 Fall Score: 0 Fall Risk Score Definition: No Risk: No action required
== END 2019-03-22 21:38 | disposition home or self-care (01) ==
LOC: L-D 15:59 → OBT 15:59 → L-D 17:35 → OBT 21:38
PROVIDERS: ATTEND Obstetrics & Gynecology
DX: O99.013 Anemia complicating pregnancy, third trimester (principal); O09.523 Supervision of elderly multigravida, third trimester; Z3A.37 37 weeks gestation of pregnancy
CPT/HCPCS: 36415; 76818; 81001; 84112; 85025; 96360; 96361; 96365; J2270; J2916; J7120; Z7500; Z7610; 81003; G0463

== ENCOUNTER 2019-03-30 05:17 | Inpatient (IN) | payer MEDICAID ==
[~2019-03-30] VITALS: Ht 167.6 cm; Wt 73.3 kg
[2019-03-30 05:58] VITALS: Ht 167.6 cm; Wt 73.3 kg
[2019-03-30 06:00] VITALS: BP 112/73; PULSE 89; RESP 18
[2019-03-30] MEDS ORDERED: LACTATED RINGER'S 1,000 ML IV SCH (06:01)
[2019-03-30] MEDS ORDERED: MISOPROSTOL 200 MCG TAB PR PRN (06:30)
[2019-03-30] MEDS ORDERED: AMPICILLIN 2 GM/NS (PMX) 100 ML IV SCH (06:30)
[2019-03-30] MEDS ORDERED: METHYLERGONOVINE 0.2 MG INJ IM PRN (06:30)
[2019-03-30] MEDS ORDERED: OXYTOCIN 30 UNITS/LR 500 ML IV SCH (06:30)
[2019-03-30] MEDS ORDERED: OXYTOCIN 30 UNITS/LR 500 ML IV PRN (06:30)
[2019-03-30] MEDS ORDERED: CARBOPROST 250 MCG INJ IM PRN (06:30)
[2019-03-30] MEDS ORDERED: PHENYLephrine (100 MCG/ML) 10ML SYG ONE (07:00)
[2019-03-30] MEDS ORDERED: METHYLERGONOVINE 0.2 MG INJ ONE (07:00)
[2019-03-30] MEDS ORDERED: CITRIC ACID/NA CITRATE 30 ML CUP PO ONE (08:00)
[2019-03-30] MEDS ORDERED: CEFAZOLIN 2 GM/50 ML (PMX) 50 ML IVPB ONE ×2 (08:00)
--- NOTE | 2019-03-30 08:21 | HP ---
Date/Time of Note Date/Time of Note DATE: 03/30/19 TIME: 08:13 OB - History Hx of Present Free Text/Dictation Trinidad Martin is a 38 years old -0-3-2 with 2 previous delivery, pre-gestational diabetes, chronic hypertension, severe anemia and single intrauterine at 38 weeks and 1 day admitted for repeat delivery. She desires permanent surgical sterilization too. She states good movement. She denies nausea, vomiting, shortness of breath, chest pain, headache, visual changes, vaginal bleeding or LOF. Risk factors: 1. Previous delivery x2 2. Pre-gestational diabetes: On metformin 1000 mg 3 times daily 3. Chronic hypertension: On methyldopa 250 mg 3 times daily 4. Severe iron deficiency anemia: She has received Ferrlecit 125 mg x 5. 5. Advanced maternal age Chief Complaint: Scheduled for repeat delivery and bilateral tubal ligation Estimated Due Date: Apr 12, 2019 : 6 Para: 2 Spontaneous : 3 Therapeutic : 0 Care: Good Care Ultrasounds: Normal mid trimester US Medical Complications: Other (Chronic hypertension, pre-gestational diabetes, severe iron deficiency anemia) Past Family/Social History * Past Medical, Surgical, Family and Obstetric Histories reviewed from chart. Blood Type: A+ Rubella: immune RPR/VDRL: Negative GBS Status: Negative HBsAG: Negative OB Admission Exam Vital Signs Vital Signs Vital Signs Date Temp Pulse Resp B/P (MAP) Pulse Ox O2 O2 Flow FiO2 Time Delivery Rate 03/30/19 98.8 89 18 112/73 Room Air 06:00 (86) Physical Exam HEENT: WNL Heart: Rhythm Normal Lungs: Clear Abdomen: WNL Extremities: Normal Membranes: Intact Heart Rate: 140's Accelerations: Accelerations Present Decelerations: No Decelerations Varibility: Moderate Contractions on Admission: None Last 72 hours Lab Results CBC & BMP 03/30/19 05:45 OB Assessment/Plan Other plan: 38 years old 6 para 2-0-3-2 with delivery x2, advanced maternal age, iron deficiency anemia, pre-gestational diabetes, chronic hypertension at 38 weeks and 1 day and admitted for repeat delivery and bilateral tubal ligation. -FHR: No sign of metabolic acidosis- Category I -Continuous EFM, toco -CBC, blood type and screen -Please see the orders -A+/Rubella: Immune -GBS: Negative 2. Please see the risk factors The risk of delivery including but not limited to bleeding, infection, injury to other organs (bowel, bladder, ureter, vessels, nerves), injury to fetus, blood transfusion, blood transfusion related infection, risk of anesthesia, adhesion, needs for future , removal of uterus or any other indicated surgery, permanent surgical sterilization, other contraceptive options including IUD, increased risk of ectopic if failure of procedure occurs discussed with the patient and her family. She expressed understanding. All of her questions were answered. She signed the informed consent. PHYSICIAN'S VERIFICATION OF INFORMED CONSENT The patient and her family were counseled regarding the procedure, its indications, risks, potential complications and alternatives and any questions were answered. Consent was obtained. PLANNED PROCEDURE/TREATMENT: delivery with possible using vacuum/forceps, bilateral tubal ligation/bilateral salpingectomy and any other indicated surgery PHYSICIAN'S VERIFICATION OF INFORMED CONSENT FOR BLOOD TRANSFUSION: There is a reasonable possibility that blood transfusion will be necessary as a result of the patient's procedure. I have discussed the following with the patie nt/patient's legal sales development representative: An explanation of the benefits and risks of the transfusion of blood or blood products and the possible alternatives. All questions have been answered to the patient's satisfaction. INFORMED CONSENT:The patient has been informed of: The nature of the proposed care, treatment, services, medications, interventions or procedures. Potential benefits, risks or side effects, including potential problems related to recuperation. The likelihood of achieving care treatment and service goals. Reasonable alternatives to the proposed care, treatment and service. The relevant risks, benefits and side effects related to alternatives, including the possible results of not receiving care, treatment and services. When indicated, any limitations on the confidentiality of information learned from or about the patient. If appropriate, the risks, benefits and alternatives of the drugs to be used for sedation/analgesia including moderate sedation. If appropriate, patient has been provided information on the risks, benefits and alternatives to the transfusion of blood and/or blood products. If appropriate, patient has been provided information regarding the [employer] [place] Blood Act. RADHA NGUYEN Mar 30, 2019 08:21
[2019-03-30] MEDS ORDERED: morphine SULFATE/PF (10 MG/10 ML) INJ ONE (08:22)
[2019-03-30] MEDS ORDERED: BUPIVACAINE 0.75%/DEXT (SPINAL) 2 ML INJ ONE (08:25)
[2019-03-30] MEDS ORDERED: LACTATED RINGER'S 1,000 ML IV ONE (08:50)
--- NOTE | 2019-03-30 08:50 | PREAC ---
Date/Time of Note Date/Time of Note DATE: 03/30/19 TIME: 08:43 Anesthesia Eval and Record Evaluation Time Pre-Procedure Interview DATE: 03/30/19 TIME: 07:59 Age 38 Sex female NPO: 8 hrs Preoperative diagnosis iup @ 39 wks, , contractions, gdm/type 2 dm, chtn/pih, sterilization request Planned procedure repeat c/s, btl. Past Medical History Past Medical History: Includes Cardio: HTN Endo: Diabetes, Other (type 2 dm) : : (6), Para: (2), Gestational age: (39 wks.), Gestational diabetes, PIH Surgery & Anesthesia Issues No known issue Meds Anticoagulation: No Beta Mandi within 24 hr: No Reason Beta Mandi not given: Pt. not on B-Mandi Reported Medications Calcium Citrate/Vitamin D (Citracal-Vitamin D 200 MG-250) 1 Each Tablet, 1 EACH PO DAILY, TAB 03/05/19 Ferrous Sulfate* (Ferrous Sulfate*) 325 Mg Tabec, 325 MG PO BID, TAB 03/05/19 Pnv95/Ferrous Fumarate/FA ( Vitamins Tablet) 1 Each Tablet, 1 EACH PO DAILY, TAB 03/05/19 Methyldopa* (Aldomet*) 250 Mg Tablet, 250 MG PO Q8, #90 TAB 03/05/19 Metformin Hcl (Glucophage) 500 Mg Tablet, 1000 MG PO Q8, #30 TAB 03/05/19 Current Medications Lactated Ringer's 1,000 ml @ 125 mls/hr Q8H IV Last administered on 03/30/19at 07:59; Admin Dose 125 MLS/HR; Start 03/30/19 at 06:01 Oxytocin/Lactated Ringer's 500 ml @ 125 mls/hr POST IV ; Start 03/30/19 at 06:30 Oxytocin/Lactated Ringer's 500 ml @ 0 mls/hr ONCE PRN IV .VAGINAL BLEEDING; Start 03/30/19 at 06:30 Methylergonovine Maleate (Methergine) 0.2 mg ONCE PRN IM .VAGINAL BLEEDING; Start 03/30/19 at 06:30 Carboprost Tromethamine (Hemabate) 250 mcg ONCE PRN IM .VAGINAL BLEEDING; Start 03/30/19 at 06:30 Misoprostol (Cytotec) 1,000 mcg ONCE PRN NE .VAGINAL BLEEDING; Start 03/30/19 at 06:30 Meds reviewed: Yes Allergies Coded Allergies: No Known Allergy (Unverified , 03/30/19) Allergies Reviewed: Yes Labs/Studies Labs Reviewed: Reviewed by anesthesiologist Result Diagram: 03/30/19 0545 Laboratory Tests 03/30/19 05:45 test: Positive Studies: ECG (n/a), CXR (n/a) Pre-procedure Exam Last vitals Vital Signs Date Temp Pulse Resp B/P (MAP) Pulse Ox O2 O2 Flow FiO2 Time Delivery Rate 03/30/19 98.8 89 18 112/73 Room Air 06:00 (86) Airway: Adequate mouth opening, Adequate thyromental dist Mallampati: Mallampati II Teeth: Normal Lung: Normal Heart: Normal ASA Physical Status ASA physical status: 3 Emergency: E Planned Anesthetic General/MAC: MAC (post baby) Neuraxial: Spinal Planned Pain Management Sub-arachniod narcotics, Local by surgeon Pre-operative Attestations Prior to commencing anesthesia and surgery, the patient was re-evaluated, there was verification of: *The patient's identity *The results of appropriate recent lab work and preoperative vital signs *The above evaluation not changing prior to induction *Anesthetic plan, risk benefits, alternative and complications discussed with patient/family; questions answered; patient/family understands, accepts and wishes to proceed. Data Processing Equipment Repairer used MARISSA SAMPSON MD Mar 30, 2019 08:50
[2019-03-30] MEDS ORDERED: OXYTOCIN 10 UNIT INJ ONE ×2 (08:54→09:09)
[2019-03-30] MEDS ORDERED: KETOROLAC 30 MG INJ IV PRN (09:00)
[2019-03-30] MEDS ORDERED: MIDAZOLAM 1 MG/ML 2 ML INJ IV PRN (09:00)
[2019-03-30] MEDS ORDERED: MIDAZOLAM 1 MG/ML 2 ML INJ ONE (09:00)
[2019-03-30] MEDS ORDERED: DIPHENHYDRAMINE 50 MG INJ IV PRN ×2 (09:00)
[2019-03-30] MEDS ORDERED: LORAZEPAM 2 MG INJ IV PRN (09:00)
[2019-03-30] MEDS ORDERED: HYDROmorphONE 0.5 MG/0.5 ML SYG IV PRN ×2 (09:00)
[2019-03-30] MEDS ORDERED: MEPERIDINE 25 MG INJ IV PRN (09:00)
[2019-03-30] MEDS ORDERED: NALBUPHINE HCL (10 MG/1 ML) INJ IV PRN (09:00)
[2019-03-30] MEDS ORDERED: NALOXONE (0.4 MG/ML) INJ IV PRN (09:00)
[2019-03-30] MEDS ORDERED: ZOLPIDEM 5 MG TAB PO PRN (09:00)
[2019-03-30] MEDS ORDERED: ONDANSETRON 4 MG INJ ONE (09:02)
[2019-03-30] MEDS: ONDANSETRON 4 MG INJ IV PRN ×2 (10:29→16:16)
[2019-03-30] MEDS ORDERED: IBUPROFEN 600 MG TAB NGT PRN (10:30)
[2019-03-30] MEDS ORDERED: CEFAZOLIN 1 GM/50 ML (PMX) 50 ML IVPB SCH (10:30)
[2019-03-30] MEDS ORDERED: morphine 2 MG INJ IV PRN (10:30)
[2019-03-30] MEDS ORDERED: ONDANSETRON 4 MG INJ IV PRN ×2 (10:30)
[2019-03-30] MEDS ORDERED: BISACODYL 10 MG SUPP PR PRN (10:30)
--- NOTE | 2019-03-30 10:48 | PAC ---
Date/Time of Note Date/Time of Note DATE: 03/30/19 TIME: 10:48 Post-Anesthesia Notes Post-Anesthesia Note Last documented vital signs Vital Signs Date Temp Pulse Resp B/P (MAP) Pulse Ox O2 O2 Flow FiO2 Time Delivery Rate 03/30/19 98.8 89 18 112/73 Room Air 06:00 (86) Activity: WNL Respiratory function: WNL Cardiovascular function: WNL Mental status: Baseline Pain reasonably controlled: Yes Hydration appropriate: Yes Nausea/Vomiting absent: Yes MARISSA SAMPSON MD Mar 30, 2019 10:48
[2019-03-30] MEDS ORDERED: PROMETHAZINE 25 MG TAB PO ONE (11:30)
[2019-03-30] MEDS ORDERED: PROMETHAZINE (1.25 MG/ML) 5 ML CUP PO PRN (12:00)
[2019-03-30] MEDS ORDERED: SCOPOLAMINE 1.5 MG PATCH TRANSDERM ONE (13:00)
[2019-03-30 13:10] VITALS: BP 126/83; PULSE 86; RESP 17
[2019-03-30] MEDS: LACTATED RINGER'S 1,000 ML IV SCH (15:15)
[2019-03-30] MEDS ORDERED: GLUCAGON 1 MG INJ IM PRN (15:30)
[2019-03-30] MEDS ORDERED: GLUCOSE GEL 15 GRAM TUBE PO PRN ×2 (15:30)
[2019-03-30] MEDS ORDERED: GLUCOSE GEL 15 GRAM TUBE BUCCAL PRN (15:30)
[2019-03-30] MEDS ORDERED: DEXTROSE 50% 50 ML SYRINGE IV PRN ×2 (15:30)
[2019-03-30 16:00] VITALS: BP 106/66; PULSE 68; RESP 18
[2019-03-30] MEDS: metFORMIN 500 MG TAB PO SCH (18:10)
[2019-03-30] MEDS: ACCU-CHEK XX SCH ×2 (18:10→21:00)
[2019-03-30 19:50] VITALS: BP 107/69; PULSE 80; RESP 19
[2019-03-30] MEDS ORDERED: CARBOPROST 250 MCG INJ ONE (20:00)
[2019-03-30] MEDS: METHYLDOPA 250 MG TAB PO SCH (22:33)
[2019-03-31] VITALS: BP 104/69; PULSE 77; RESP 17
[2019-03-31] MEDS: CEFAZOLIN 1 GM/50 ML (PMX) 50 ML IVPB SCH ×2 (00:27→08:37)
[2019-03-31] MEDS: LACTATED RINGER'S 1,000 ML IV SCH ×2 (00:33→07:30)
[2019-03-31 04:00] VITALS: BP 100/61; PULSE 89; RESP 18
[2019-03-31] MEDS: METHYLDOPA 250 MG TAB PO SCH ×2 (06:12→14:30)
--- NOTE | 2019-03-31 06:34 | OPPN ---
Date/Time of Note Date/Time of Note DATE: 03/31/19 TIME: 06:32 Anesthesia Follow up Anesthesia Follow up Last documented vital signs Vital Signs Date Temp Pulse Resp B/P (MAP) Pulse Ox O2 O2 Flow FiO2 Time Delivery Rate 03/31/19 98.3 89 18 100/61 95 Room Air 04:00 (74) Respiratory function: WNL Cardiovascular function: WNL Comments S: pt. is pod #1. min. bt pain. min. n/v. min. need for bt pain meds. ie. nsaids/opiates. ambulating. O: vss, afeb. A: min. bt pain sec. to IT MSO4. P: no complications. MARISSA SAMPSON MD Mar 31, 2019 06:34
[2019-03-31 07:35] VITALS: BP 100/56; PULSE 82; RESP 18
[2019-03-31] MEDS: ACCU-CHEK XX SCH ×4 (08:34→21:50)
[2019-03-31] MEDS: metFORMIN 500 MG TAB PO SCH ×2 (08:37→17:53)
[2019-03-31] MEDS: OXYCODONE/ACETAMINOPHEN (5/325) TAB PO PRN ×4 (10:37→23:07)
[2019-03-31] MEDS: IBUPROFEN 600 MG TAB PO PRN ×2 (12:39→17:53)
[2019-03-31 14:30] VITALS: BP 99/56
[2019-03-31 15:21] VITALS: BP 99/59; PULSE 76; RESP 20
--- NOTE | 2019-03-31 15:24 | OPR ---
Operative Report Planned Procedure Procedure date Mar 31, 2019 Procedure(s) 1. Repeat low transverse delivery 2. Bilateral tubal ligation Performed by see signature line Manufacturing Intern: JOLENE BETANCUR MD Anesthesiologist: NILA LAWSON PA-C Pre-procedure diagnosis 38 years old 6 para 2-0-3-2 with delivery x2, advanced maternal age, iron deficiency anemia, pre-gestational diabetes, chronic hypertension at 38 weeks and 1 day desires repeat C/S and permanent sterilization [id number] Anesthesia Type: [id number] spinal Post-Procedure Post-procedure diagnosis 38 years old 6 para 2-0-3-2 with delivery x2, advanced maternal age, iron deficiency anemia, pre-gestational diabetes, chronic hypertension at 38 weeks and 1 day desires repeat C/S and permanent sterilization Findings 1. Normal uterus, fallopian tubes and ovaries 2. Viable female in cephalic presentation. 8 at one minute and 9 in 5 minutes. Weight: 7 lbs 1 oz. Time of delivery: 08:59 3. Placenta with three vessel cord 4. Amniotic fluid - Clear Estimated Blood Loss: 500 - 600 mls Specimen(s) none Grafts/Implant(s) none Complication(s) none Pt Condition post procedure: stable Disposition: PACU Procedure Description INDICATION AND HISTORY: A 38 years old 6 para 2-0-3-2 with delivery x2, advanced maternal age, iron deficiency anemia, pre-gestational diabetes, chronic hypertension at 38 weeks and 1 day admitted for repeat delivery and bilateral tubal ligation. The risk of delivery including but not limited to bleeding, infection, injury to other organs (bowel, bladder, ureter, vessels, nerves), injury to fetus, blood transfusion, blood transfusion related infection, risk of anesthesia, adhesion, needs for future , removal of uterus or any other indicated surgery, permanent sterilization, other contraceptive options including IUD discussed with the patient and her family. She expressed understanding. All of her questions were answered. She signed the informed consent. DESCRIPTION OF OPERATION: The patient was taken to the operating room, where she was identified and the procedure was verified. The patient received two gram of Ancef 30 minutes prior to surgery. Spinal anesthesia was placed by anesthesiologist. The patient placed in the dorsal supine position with a left tilt. The heart rate was 130 bpm. The patient was then prepped and draped in the normal sterile fashion. A Pfannenstiel skin incision was made and carried down to the fascia with knife. The fascia was incised in the midline and the fascial incision was carried laterally with Moreira scissors. The superior portion of the fascial incision was then grasped with Bee clamps and tented up and dissected off the underlying rectus muscle with sharp dissection. The lower portion of the fascial incision was then made in a similar fashion. The rectus muscle was and the peritoneum was entered. The peritoneal incision was then stretched and a bladder blade was inserted. Then, an incision was made in the lower uterine segment in a transverse fashion with a knife and extended bluntly. The was delivered atraumatically in cephalic presentation with the above findings. The umbilical cord was clamped and cut. The neonatology resuscitation team was present and the baby was handed to them. A cord blood sample was obtained for further evaluation. The placenta and membrane, which appeared normal were Removed. The uterus was exteriorized and cleared of all clot and debris. The uterus was then closed in a two layer fashion with 0- Monocryl. At the time of closure, hemostasis was noted. Then the left fallopian tube was identified and was grasped using Sonu clamp, segment of distal fallopian tube including fimbria was double ligated with O- plain, excised and sent to pathology. Same procedure repeated at the right side. Hemostasis of stump of both fallopian tube reassured. The gutters were irrigated. The peritoneum was reapproximated with 3-0 Vicryl. The muscle was reapproximated with 3-0 Vicryl. The fascia was approximated with 0-Vicryl in a running fashion. The subcutaneous tissue was re approximated with 3-0 vicryl. The skin was closed with 4-0 Monocryl. All instruments, sponges and needle counts were correct x3. The patient tolerated the procedure well. She transferred to the recovery room in stable condition. RADHA NGUYEN Mar 31, 2019 15:15
--- NOTE | 2019-03-31 15:25 | PN ---
Date/Time of Note Date/Time of Note DATE: 03/31/19 TIME: 15:24 OB Subjective Subjective Subjective POD#1 Patient is doing well. She denies nausea, vomiting, shortness of breath, chest pain, headache. She has been ambulating without difficulty, tolerating regular diet. Pain is well controlled on current medications OB Objective Objective Objective VS - Last 72 Hours, by Label Date Temp Pulse Resp B/P (MAP) Pulse Ox O2 O2 Flow FiO2 Time Delivery Rate 03/31/19 98.2 76 20 99/59 (72) Room Air 15:21 03/31/19 99/56 (70) 14:30 03/31/19 98.8 82 18 100/56 Room Air 07:35 (71) 03/31/19 98.3 89 18 100/61 95 Room Air 04:00 (74) 03/31/19 97.9 77 17 104/69 96 Room Air 00:00 (81) 03/30/19 98.0 80 19 107/69 96 Room Air 19:50 (82) 03/30/19 97.9 68 18 106/66 16:00 (79) 03/30/19 98.1 86 17 126/83 95 Room Air 13:10 (97) 03/30/19 98.8 89 18 112/73 Room Air 06:00 (86) General: AAO X 3, comfortable, NAD, appropriate mood and affect. Heart: RRR +S1, +S2, no murmurs. Lungs: Clear to auscultation (B/L), no rales, rhonchi or wheezing. ABD: +BS. Soft, non-tender. Uterus 2 cm below umbilicus Incision: Clear, dry, intact. No erythema, drainage or induration. Flank: No CVA tenderness (B/L) LE: Mild edema. No clubbing, cyanosis, thigh or calf tenderness (B/L). Homans 'sign is negative OB Assessment/Plan Other plan: 38 years old -0-3-3 with pre-gestational diabetes, chronic hypertension s/p repeat delivery and bilateral tubal ligation at 38 weeks and 1 day. POD#1 - AF, VSS - Baby is doing well, at bed side. She is bonding well 2. Pre-gestational diabetes: - She was on metformin 1000 mg 3 times a day before delivery. Currently on metformin 500 mg twice daily - Continue checking blood sugar before meals and nightly. Currently blood sugars are within normal limits 3. Chronic hypertension: - She was on methyldopa 250 mg 3 times daily, continue same dose. - Currently she is doing well. Her blood pressure are within normal limits. - She does not have any symptom of preeclampsia 4. Iron deficiency anemia: Continue ferrous sulfate 325 mg tid RADHA NGUYEN Mar 31, 2019 15:25
[2019-03-31 20:30] VITALS: BP 105/66; PULSE 80; RESP 20
[2019-03-31] MEDS: MAGNESIUM HYDROXIDE 30ML CUP PO PRN (21:16)
[2019-03-31] MEDS: SENNA/DOCUSATE NA (8.6MG/50MG) TAB PO PRN (21:16)
[2019-04-01] MEDS: IBUPROFEN 600 MG TAB PO PRN ×4 (00:09→21:14)
[2019-04-01 04:10] VITALS: BP 112/69; PULSE 81; RESP 17
[2019-04-01 08:00] VITALS: BP 111/68; PULSE 83; RESP 20
[2019-04-01] MEDS: MAGNESIUM HYDROXIDE 30ML CUP PO PRN (08:33)
[2019-04-01] MEDS: SENNA/DOCUSATE NA (8.6MG/50MG) TAB PO PRN (08:33)
[2019-04-01] MEDS: ACCU-CHEK XX SCH ×3 (08:40→17:57)
[2019-04-01] MEDS: metFORMIN 500 MG TAB PO SCH ×2 (09:06→17:59)
--- NOTE | 2019-04-01 12:49 | QN ---
Documentation Comment Postop day #2 Status post repeat and BTL Patient stable and afebrile Vital signs stable VS - Last 72 Hours, by Label Date Temp Pulse Resp B/P (MAP) Pulse Ox O2 O2 Flow FiO2 Time Delivery Rate 04/01/19 98.2 83 20 111/68 08:00 (82) 04/01/19 97.8 81 17 112/69 Room Air 04:10 (83) 03/31/19 98.0 80 20 105/66 Room Air 20:30 (79) 03/31/19 98.2 76 20 99/59 (72) Room Air 15:21 03/31/19 99/56 (70) 14:30 03/31/19 98.8 82 18 100/56 Room Air 07:35 (71) 03/31/19 98.3 89 18 100/61 95 Room Air 04:00 (74) 03/31/19 97.9 77 17 104/69 96 Room Air 00:00 (81) 03/30/19 98.0 80 19 107/69 96 Room Air 19:50 (82) 03/30/19 97.9 68 18 106/66 16:00 (79) 03/30/19 98.1 86 17 126/83 95 Room Air 13:10 (97) 03/30/19 98.8 89 18 112/73 Room Air 06:00 (86) Hematology - 72 Hrs Test 03/30/19 05:45 03/31/19 06:28 Hematocrit 30.0 % (37.0-47.0) L 27.8 % (37.0-47.0) L Hemoglobin 9.0 g/dl (12.0-16.0) L 8.3 g/dl (12.0-16.0) L Mean Corpuscular 21.8 pg (29.0-33.0) L 21.8 pg (29.0-33.0) L Hemoglobin Mean Corpuscular 30.0 g/dl (32.0-37.0) L 29.9 g/dl (32.0-37.0) L Hemoglobin Concent Mean Corpuscular Volume 72.6 fl (82.0-101.0) L 73.2 fl (82.0-101.0) L Mean Platelet Volume 10.3 fl (7.4-10.4) 10.3 fl (7.4-10.4) Platelet Count 265 10^3/UL (140-415) 253 10^3/UL (140-415) Red Blood Count 4.13 10^6/ul (4.20-5.40) 3.80 10^6/ul (4.20-5.40) L L Red Cell Distribution 28.0 % (11.5-14.5) #H 27.9 % (11.5-14.5) H Width White Blood Count 7.2 10^3/ul (4.8-10.8) 10.0 10^3/ul (4.8-10.8) # Chemistry Test 03/30/19 12:33 03/30/19 17:49 03/30/19 20:34 03/31/19 06:28 Bedside 136 130 137 Glucose mg/dL (70-220) mg/dL (70-220) mg/dL (70-220) Sodium Level 134 mmol/L (135-14 4) L Potassium 3.5 Level mmol/L (3.5-5. 1) Chloride Level 103 mmol/L (97-110 ) Carbon Dioxide 27 Level mmol/L (21-31) Anion Gap 4 (5-13) L Blood Urea 8 mg/dl Nitrogen (7-20) Creatinine 0.43 mg/dl (0.44-1. 00) L Est Glomerular > 60 Filtrat mL/min (>60) Rate mL/min Glucose Level 72 mg/dl (70-220) Calcium Level 8.2 mg/dl (8.4-10. 2) L Total 0.4 Bilirubin mg/dl (0.2-1.3 ) Direct 0.00 Bilirubin mg/dl (0.00-0. 20) Indirect 0.4 Bilirubin mg/dl (0-1.1) Aspartate Amino 23 Transf (AST/SGO IU/L (15-46) T) Alanine 16 Aminotransferas IU/L (13-69) e (ALT/SGPT) Alkaline 73 Phosphatase IU/L (42-121) Total Protein 5.4 g/dl (6.1-8.1) L Albumin 2.6 g/dl (3.3-4.9) L Globulin 2.80 g/dl (1.3-3.2) Albumin/Globuli 0.92 n Ratio Test 03/31/19 08:29 03/31/19 12:33 03/31/19 17:29 03/31/19 21:58 Bedside 81 95 78 99 Glucose mg/dL (70-220) mg/dL (70-220) mg/dL (70-220) mg/dL (70-220) Test 04/01/19 08:39 Bedside 78 Glucose mg/dL (70-220) Abdomen soft, fundus firm Incision clean,dry,intact Extremities nontender Assessment and plan Patient stable and doing well Encouraged to ambulate Continue with routine postop care JOLENE BETANCUR MD Apr 01, 2019 12:49
[2019-04-01 16:15] VITALS: BP 116/64; PULSE 80; RESP 18
[2019-04-01 20:00] VITALS: BP 115/66; PULSE 82; RESP 20
[2019-04-01] MEDS: DOCUSATE SODIUM 100 MG CAP PO SCH (21:14)
[2019-04-01] MEDS: OXYCODONE/ACETAMINOPHEN (5/325) TAB PO PRN (21:15)
[2019-04-02] MEDS: OXYCODONE/ACETAMINOPHEN (5/325) TAB PO PRN ×2 (02:26→08:55)
[2019-04-02] MEDS: IBUPROFEN 600 MG TAB PO PRN ×2 (05:11→12:02)
[2019-04-02 06:12] VITALS: BP 118/74; PULSE 75; RESP 20
[2019-04-02 08:00] VITALS: BP 110/68; PULSE 80; RESP 18
[2019-04-02] MEDS: ACCU-CHEK XX SCH (08:46)
[2019-04-02] MEDS: metFORMIN 500 MG TAB PO SCH (08:54)
[2019-04-02] MEDS: DOCUSATE SODIUM 100 MG CAP PO SCH (08:55)
--- NOTE | 2019-04-02 09:08 | DS ---
Date/Time of Note Date/Time of Note DATE: 04/02/19 TIME: 09:05 Obstetrical Discharge Record Final Diagnosis Final Diagnosis: Term delivered Other Final Diagnosis 38 years old -0-3-3 with pre-gestational diabetes, chronic hypertension s/p repeat delivery and bilateral tubal ligation at 38 weeks and 1 day. POD#3 - AF, VSS - Baby is doing well, at bed side. She is bonding well - She is doing breast-feeding, baby at bedside, she is bonding - Discharge home - Prescription and instruction given - Follow-up in 1 and 6 weeks 2. Pre-gestational diabetes: - She was on metformin 1000 mg 3 times a day before delivery. Currently on metformin 500 mg twice daily. Blood sugar is controlled on current medication 3. Chronic hypertension: - She was on methyldopa 250 mg 3 times daily, her blood pressure after second day of are low, discontinued meds. Follow her closely - She does not have any symptom of preeclampsia 4. Iron deficiency anemia: Continue ferrous sulfate 325 mg tid Section Section: Repeat Condition on Discharge Physical Assessment Last Vitals: Vital Signs Date Temp Pulse Resp B/P (MAP) Pulse Ox O2 O2 Flow FiO2 Time Delivery Rate 04/02/19 98.1 80 18 110/68 08:00 (82) 04/02/19 Room Air 06:12 03/31/19 95 04:00 Voiding: Yes Bowel Movement: Yes Breast: Soft, non-tender Fundus: Firm Calf Tenderness: No Patient Condition: Stable RADHA NGUYEN Apr 02, 2019 09:08
--- NOTE | 2019-04-02 14:01 | NSTRPT ---
NST Information Datetime Report Generated by CPN: 04/02/2019 14:00 Datetime: 03/28/2019 10:17 NST Information EGA: 37.6 Test Number: 4 Time on Monitor: 03/28/2019 10:48 Time off Monitor: 03/28/2019 11:11 NST Duration (Min): 23 Reason for NST: Chronic Hypertension; Diabetes Mellitus; Other Reason for NST Other: [id number], iron infusion Test and Monitor Explained: Monitor Explained; Test Explained Pulse: 88 SBP: 105 DBP: 62 Test Evaluation NST Interventions: None Patient States Movement: Present Contraction Frequency: X1 FHR Baseline : 140 Variability: Moderate 6-25bpm Accelerations: 15X15 Decelerations: None FHR Category: Category I NST Results: Reactive Comments: PT TO U/S SHIRLEY 16.5. CEPHALIC Electronically Signed By E-Signature: with User ID: [id number] Datetime: 03/25/2019 10:04 NST Information EGA: 37.3 NST Duration (Min): 50 Datetime: 03/21/2019 09:52 NST Information EGA: 36.6 NST Duration (Min): 43 Datetime: 03/19/2019 10:32 NST Information EGA: 36.4 NST Duration (Min): 37
--- NOTE | 2019-04-03 15:00 | DELSUM ---
Delivery Summary A-C Datetime Report Generated by CPN: 04/03/2019 15:00 DELIVERY PERSONNEL Water Service Dispatcher: Kolby, Cordelia MATERNAL INFORMATION Delivery Anesthesia: Spinal Medications in Delivery: see anesthesia records Delivery QBL (ml): 600 Placenta Cultured: No Maternal Complications: None Other Maternal Complications: 38.1 weeks schedule hx high BP, anemia, GDM on methformin LABOR SUMMARY EDC: 04/12/2019 00:00 No. Babies in Womb: 1 Attempted: No Labor Anesthesia: None LABOR INFORMATION Reason for Induction: Not Applicable Oxytocin: N/A Group B Beta Strep: Negative Antibiotics # of Doses: Ancef 2 grams Antibiotics Time of Last Dose: 03/30/2019 08:35 Steroids Given: None Reason Steroids Not Administered: Not Applicable MEMBRANES Membranes Rupture Method: Artificial Rupture of Membranes: 03/30/2019 08:58 Length of Rupture (hr): 0.02 Amniotic Fluid Color: Light Meconium Amniotic Fluid Amount: None Amniotic Fluid Odor: None STAGES OF LABOR Stage 3 hr: 0 Stage 3 min: 2 CSECTION DELIVERY Primary Indication: Repeat Elective Secondary Indication: N/A CSection Urgency: Non Elective CSection Incidence: Repeat Labor: N/A Elective: N/A CSection Incision: Lower Uterine Transverse Sterilization Procedure: [place] BABY A INFORMATION Infant Delivery Date/Time: 03/30/2019 08:59 Method of Delivery: Born in Route : No : N/A Forceps: N/A Vacuum Extraction: N/A Shoulder Dystocia : N/A SHOULDER DYSTOCIA BABY A Infant Delivery Date/Time: 03/30/2019 08:59 PRESENTATION/POSITION BABY A Presentation: Cephalic Cephalic Presentation: Vertex Vertex Position: Right Occipital Posterior Breech Presentation: N/A PLACENTA INFORMATION BABY A Placenta Delivery Time : 03/30/2019 09:01 Placenta Method of Delivery: Manual Removal Placenta Status: Delivered SCORES BABY A Heart Rate 1 min: >100 bpm Resp Effort 1 min: Good Cry Reflex Irritability 1 min: Cough/Sneeze/Pulls Away Muscle Tone 1 min: Active Motion Color 1 min: Blue/Pale Resuscitation Effort 1 min: Tactile Stimulation SCORE 1 MIN: 8 Heart Rate 5 min: >100 bpm Resp Effort 5 min: Good Cry Reflex Irritability 5 min: Cough/Sneeze/Pulls Away Muscle Tone 5 min: Active Motion Color 5 min: Body [place], Extremit Blue Resuscitation Effort 5 min: Tactile Stimulation SCORE 5 MIN: 9 INFORMATION BABY A Gestational Age at Delivery: 38.1 Gestational Status: Early Term- 37- 38.6 Weeks Outcome : Liveborn Infant Condition : Stable Sex: Female IDENTIFICATION/MEDS BABY A ID Band Number: [id number] ID Band Location: Right Leg; Left Arm Sensor Applied: Yes Sensor Number: [id number] Sensor Location : Cord Clamp Vitamin K Given : Not Given Erythromycin Given: Not Given WEIGHT/LENGTH BABY A Infant Birthweight (gm): 3205 Weight (lb): 7 Infant Weight (oz): 1 Infant Length (in): 20.00 Length (cm): 50.80 CORD INFORMATION BABY A No. Cord Vessels: 3 Nuchal Cord : N/A Cord Blood Taken: Yes Suction: Mouth; Nose ASSESSMENT BABY A Complications: Meconium Physical Findings at Delivery: Within Normal Limits Infant Respirations: Appears Normal Brake Repair Supervisor/ALS Called : No Infant Care By: Cammy Ortega RN/Cristina JUAN Transferred To: Remains with Mother
== END 2019-04-02 14:15 | disposition home or self-care (01) | DRG 784 ==
LOC: L-D 05:17 → PP1 12:55
PROVIDERS: ADMIT Obstetrics & Gynecology; ATTEND Obstetrics & Gynecology
PROC: 10D00Z1 Extraction of Products of Conception, Low, Open Approach (ICD-10-PCS; principal; 2019-03-31)
PROC: 0UT70ZZ Resection of Bilateral Fallopian Tubes, Open Approach (ICD-10-PCS; 2019-03-31)
DX: O65.5 Obstructed labor due to abnormality of maternal pelvic organs (principal); O10.92 Unspecified pre-existing hypertension complicating childbirth; O34.211 Maternal care for low transverse scar from previous cesarean delivery; O24.429 Gestational diabetes mellitus in childbirth, unspecified control; O99.02 Anemia complicating childbirth; Z3A.38 38 weeks gestation of pregnancy; Z37.0 Single live birth; Z30.2 Encounter for sterilization
CPT/HCPCS: 80053; 82962; 85025; 85610; 85730; 86592; 86850; 86900; 86901; 88302; 99464; J0690; J1885; J2210; J2250; J2274; J2370; J2405; J2590; J7120